=== PATIENT | female | born 1950 | race Caucasian/White ===

== ENCOUNTER 2020-01-03 09:11 | Emergency (ER) | payer MEDICARE, SELFPAY ==
--- NOTE | ~2020-01-03 | XR_ITS ---
EXAMINATION: XR shoulder LT min 2V DATE: 01/03/2020 09:43 INDICATION: Left shoulder pain and limited range of motion post fall TECHNIQUE: AP internally and externally rotated, AP oblique externally rotated and transscapular Y vi ews of the left shoulder were obtained. COMPARISON: None FINDINGS: Transverse fracture at the surgical neck of the proximal left humerus which is essentially nondisplac ed with mild anterior and medial impaction. Normal alignment and mild osteoarthritis at the left trey ohumeral and acromioclavicular joints. Severe lower cervical spondylosis. Soft tissues are unremarkab le. Visualized portions of the left lung are clear. IMPRESSION: Nondisplaced 1 part fracture at the left humeral surgical neck. Reviewed, dictated and finalized at location A.
[2020-01-03 09:21] VITALS: BP 153/75; PULSE 89; RESP 20; TEMP 36.4; O2SAT 98
--- NOTE | 2020-01-03 09:23 | ED.GENADULT ---
HPI - General Adult General Chief complaint: Extremity Injury, Upper Stated complaint: left shoulder injury Time Seen by Provider: 01/03/20 09:25 Source: patient and RN notes reviewed Mode of arrival: ambulatory Limitations: no limitations History of Present Illness HPI narrative: 69 year old female presents to [facility] care with complaints of injury to her left shoulder which occurred when she fell out of bed this morning at around 0630. Patient has pain to left AC joint area and in left upper arm with inability to actively move these areas. Patient has strong left radial and brachial pulses MD complaint: left shoulder pain and upper arm pain Onset (ago): hour(s) (at 0630 today) Location: left and upper extremity Radiation: other (left ac joint into left upper arm) Severity: severe Severity scale (1-10): 10 Quality: aching Pain Consistency: constant Relieving factors: rest Exacerbating factors: movement Treatments prior to arrival: none Related Data Home Medications Medication Instructions Recorded Confirmed blood-glucose meter #1 each 02/07/19 Allergies Allergy/AdvReac Type Severity Reaction Status Date / Time No Known Allergies Allergy Mild Verified 02/12/19 09:54 Review of Systems Review of Systems: Narrative: CONSTITUTIONAL: Denies fever, chills, or sweats. EYES: Denies visual changes, redness, or discharge. ENT: Denies rhinorrhea, congestion, sore throat, or otalgia. CARDIOVASCULAR: Denies chest pain, palpitations, or edema. RESPIRATORY: Denies cough or dyspnea. GASTROINTESTINAL: Denies abdominal pain, nausea, vomiting, or diarrhea. GENITOURINARY: Denies dysuria or hematuria. SKIN: Denies rash or itching. MUSCULOSKELETAL: Denies lumbar back pain, positive history of cervical neck problems, positive left shoulder joint pain radiating to left upper arm, or myalgia related to injury this morning. NEUROLOGIC: Denies headache, numbness, or weakness. PSYCHIATRIC: Denies anxiety or depression. All systems reviewed & are unremarkable except as noted in HPI and below PMFSH Past Medical History Medical History (Updated 01/03/20 @ 10:20 by Dianne Geronimo NP) Cervical radiculopathy Essential (primary) hypertension Hyperlipidemia Neuropathy Type 2 diabetes mellitus with diabetic neuropathy, without long-term current use of insulin Surgical History Surgical History (Updated 01/03/20 @ 09:37 by Dianne Geronimo NP) H/O breast biopsy H/O section H/O: hysterectomy Family History Family History (Updated 01/03/20 @ 12:40 by Dianne Geronimo NP) Mother Patient's mother is Heart disease Diabetes mellitus Father Patient's father is Other Hypertension Social History Social History (Updated 01/03/20 @ 09:59 by Dianne Geronimo NP) Smoking status: Never smoker Second hand tobacco smoke exposure: Yes Alcohol intake: current Substance use: never Living arrangements: with family Gender identity (if verbalized by the patient): Female Comments At time of signature, agree with nursing past medical, surgical, social and family history. There is no relevant family history pertinent to the presenting complaint Exam Narrative: Exam Narrative: GENERAL: Well-appearing, well-nourished, and in no acute distress. HEAD: Normocephalic, atraumatic. EYES: PERRLA and EOMI. ENT: Nares clear, no rhinorrhea or epistaxis. Mucous membranes moist. NECK: Supple.no lymphadenopathy CHEST: Clear to auscultation. No respiratory distress.SAO2 98% on room air. HEART: Regular rate and rhythm. No murmur heard. Normal peripheral pulses. ABDOMEN: Soft, nontender, nondistended, normal active bowel sounds. EXTREMITIES: Limited ROM to left shoulder with pain from injury, unable to abduct shoulder,strong left brachial and radial pulses. Patient has tenderness on palpation at AC joint and in proximal humerus. SKIN: Warm, dry, no rash. NEURO: No focal deficits. Alert and annita
== END 2020-01-03 10:33 | disposition home or self-care (01) ==
PROVIDERS: Emergency Provider Registered Nurse; PCP Internal Medicine
DX: S42.215A Unspecified nondisplaced fracture of surgical neck of left humerus, initial encounter for closed fracture (principal); W06.XXXA Fall from bed, initial encounter; I10 Essential (primary) hypertension; E11.42 Type 2 diabetes mellitus with diabetic polyneuropathy; M54.12 Radiculopathy, cervical region
CPT/HCPCS: 73030; 99214; G0463

== ENCOUNTER 2020-09-10 14:30 | Outpatient (RCR) | payer MEDICARE, SELFPAY ==
[2020-07-09 09:07] VITALS: BMI 28.9
[2020-07-09 09:10] VITALS: BMI 28.9
== END 2020-09-24 15:03 | disposition home or self-care (01) ==
LOC: ANHDMC 14:30
PROVIDERS: PCP Internal Medicine; Referring Provider Internal Medicine Endocrinology, Diabetes & Metabolism; Visit Provider Internal Medicine Endocrinology, Diabetes & Metabolism
DX: E11.40 Type 2 diabetes mellitus with diabetic neuropathy, unspecified (principal); E11.65 Type 2 diabetes mellitus with hyperglycemia; Z71.3 Dietary counseling and surveillance; Z71.89 Other specified counseling
CPT/HCPCS: 97802; G0108; G0109

== ENCOUNTER 2020-10-03 11:39 | Outpatient (CLI) | payer MEDICARE, SELFPAY ==
[2020-10-03 14:03] LABS: Add Urine Microscopic? YES; Appearance Urine Clear (Clear); Bilirubin Urine Negative (Negative); Blood Urine Negative (Negative); Color Urine Yellow (Yellow); Glucose Urine UA 3+ mg/dL (Negative); Ketones Urine Negative (Negative); Leukocyte Esterase Ur Negative LEU/UL (NEGATIVE); Mucus Urine Rare /lpf; Nitrate Urine Negative (Negative); Protein Urine Negative (Negative); RBC Urine 0-2 /hpf (0-2); Specific Grav Ur 1.024 (1.001-1.035); Squamous Epithelial Cell Urine Rare /hpf (Few); Urobilinogen Urine Negative mg/dL (<2.0)
== END 2020-10-03 11:40 | disposition home or self-care (01) ==
PROVIDERS: PCP Internal Medicine; Visit Provider Physician Assistant
DX: R10.9 Unspecified abdominal pain (principal)
CPT/HCPCS: 81001; 87086; 87088

== ENCOUNTER 2020-10-13 14:52 | Outpatient (CLI) | payer MEDICARE, SELFPAY ==
--- NOTE | ~2020-10-13 | CT_ITS ---
EXAMINATION: CT abdomen pelvis wo con DATE: 10/13/2020 15:19 INDICATION: Left flank pain TECHNIQUE: Computed tomography (CT) of the abdomen and pelvis was performed without intravenous contr ast. The dose-length product (DLP) was 405.46 mGy-cm. Automated exposure control and iterative recons truction technique were employed. COMPARISON: 05/28/2011 FINDINGS: The lung bases are clear. The heart size is normal. Punctate calcifications in otherwise no rmal appearing liver and spleen likely represent healed granulomatous disease. The pancreas, gallblad randal, and adrenal glands are normal. There is a 3 mm nonobstructing stone of the left kidney. Nonobstr ucting stones measuring up to 2 mm are present in the right kidney. No stones are present in the uret ers or bladder. There is no hydronephrosis or hydroureter. There is a 6 mm cyst of the left kidney. T here is calcified atherosclerosis of the aorta and many of the other arteries. No pathologically enla rged abdominal or pelvic lymph nodes are identified. There is no free intraperitoneal gas or evidence of bowel obstruction. There is mild lumbar spondylosis. IMPRESSION: 1. No CT correlate for the patient's symptoms. 2. Bilateral nonobstructing nephrolithiasis. Reviewed, dictated and finalized at location A.
== END 2020-10-13 14:53 | disposition home or self-care (01) ==
LOC: ANHIMG 14:57
PROVIDERS: PCP Internal Medicine; Visit Provider Nurse Practitioner Adult Health
DX: R10.9 Unspecified abdominal pain (principal); N20.0 Calculus of kidney
CPT/HCPCS: 74176

== ENCOUNTER 2022-03-22 10:30 | Emergency (ER) | payer MEDICARE, SELFPAY ==
--- NOTE | ~2022-03-22 | XR_ITS ---
EXAMINATION: XR knee RT min 4V DATE: 03/22/2022 11:25 INDICATION: Right knee pain TECHNIQUE: Four views of the right knee were obtained. COMPARISON: None. FINDINGS: Alignment is normal. No fracture or osteochondral lesion. There is tricompartmental osteoar thritis, moderate in the medial and patellofemoral compartments. No joint effusion/synovitis. Soft t issues are unremarkable. IMPRESSION: 1. Tricompartmental osteoarthritis without acute osseous abnormality. Reviewed, dictated and finalized at location B. 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
[2022-03-22 10:36] VITALS: BP 143/73; PULSE 97; RESP 14; TEMP 36.7; O2SAT 99
--- NOTE | 2022-03-22 10:54 | ED.LOWEXIN ---
HPI - Extremity Injury (Lower) General Chief Complaint: Extremity Injury, Lower Stated Complaint: Right Knee Pain Time Seen by Provider: 03/22/22 10:54 Source: patient, RN notes reviewed and old records reviewed Mode of arrival: ambulatory Limitations: no limitations History of Present Illness HPI Narrative: 72-year-old female who presents to [facility] with complaints of right knee pain located on the medial aspect of her right knee for the past month duration. Patient states she has had torn meniscus [place] [address] Augustine in the past and has also had past knee injection to her right knee. 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 Patient has full ROM of her right knee with no swelling noted, denies any tingling or numbness to her right lower leg or foot. MD complaint: other (right knee pain) Onset (ago): month(s) (1) Treatments prior to arrival: NSAIDS Related Data Home Medications Medication Instructions Recorded Confirmed blood-glucose meter (Accu-Chek #1 ea 02/07/19 12/20/21 Cary Plus Meter) insulin glargine 100 subcut 03/22/22 unit-lixisenatide 33 mcg/mL subcutaneous pen (Soliqua /33) Allergies Allergy/AdvReac Type Severity Reaction Status Date / Time No Known Allergies Allergy Mild Verified 03/22/22 11:14 Review of Systems Review of Systems: CONSTITUTIONAL: Denies fever, chills, or sweats. EYES: Denies visual changes, redness, or discharge. ENT: Denies rhinorrhea, congestion, sore throat, or otalgia. CARDIOVASCULAR: Denies chest pain, palpitations, or edema. RESPIRATORY: Denies cough or dyspnea. GASTROINTESTINAL: Denies abdominal pain, nausea, vomiting, or diarrhea. GENITOURINARY: Denies dysuria or hematuria. SKIN: Denies rash or itching. MUSCULOSKELETAL: Denies back pain,positive for right medical knee joint pain, or myalgia. NEUROLOGIC: Denies headache, numbness, or weakness. PSYCHIATRIC: Denies anxiety or depression. All systems reviewed & are unremarkable except as noted in HPI and below PMFSH Past Medical History Medical History Acute pain of left shoulder Annual physical exam Arthritis Body mass index (BMI) 23 or greater (12/22/17) Cervical radiculopathy Chronic pain of right knee Dermoid cyst of forehead Essential (primary) hypertension Gastro-esophageal reflux disease without esophagitis Hyperlipidemia Iron deficiency anemia Left flank pain Myalgia Nephrolithiasis Neuropathy Peripheral edema Type 2 diabetes mellitus with diabetic neuropathy, without long-term current use of insulin Surgical History Surgical History H/O breast biopsy H/O section H/O: hysterectomy History of eye surgery cataract surgery left eye Family History Family History Mother Patient's mother is Heart disease Diabetes mellitus Father Patient's father is Other Asthma Hypertension Social History Social History Smoking status: Never smoker Second hand tobacco smoke exposure: Yes Alcohol intake: current Alcohol use details: rarely Substance use: never Gender identity (if verbalized by the patient): Female Spiritual care concerns: No Comments At time of signature, agree with nursing past medical, surgical, social and family history. There is no relevant family history pertinent to the presenting complaint Exam Narrative: GENERAL: Well-appearing, well-nourished, and in no acute distress. HEAD: Normocephalic, atraumatic. EYES: PERRLA and EOMI. ENT: Nares clear, no rhinorrhea or epistaxis. Mucous membranes moist.TM's normal with good light reflex, throat pink with no lesions or exudates or swelling NECK: Supple.no lymphadenopath
== END 2022-03-22 12:11 | disposition home or self-care (01) ==
PROVIDERS: Emergency Provider Registered Nurse; PCP Internal Medicine
DX: M25.561 Pain in right knee (principal); M19.90 Unspecified osteoarthritis, unspecified site; I10 Essential (primary) hypertension; K21.9 Gastro-esophageal reflux disease without esophagitis; E78.5 Hyperlipidemia, unspecified; D50.9 Iron deficiency anemia, unspecified; E11.40 Type 2 diabetes mellitus with diabetic neuropathy, unspecified
CPT/HCPCS: 73564; 99213; G0463

== ENCOUNTER 2022-09-30 10:48 | Observation (INO) | payer MEDICARE, SELFPAY ==
[2022-09-30] VITALS (14 sets, daily range): BP systolic 107–160; BP diastolic 66–90; PULSE 76–90; RESP 11–26; TEMP 36.3–36.6; O2SAT 95–100; BMI 28.8; BMI 28.9
--- NOTE | ~2022-09-30 | XR_ITS ---
XR chest 2V DATE: 09/30/2022 13:37 INDICATION: Stroke symptoms TECHNIQUE: PA and lateral views COMPARISON: None FINDINGS: Normal heart size. There is mild aortic unfolding. No hilar or mediastinal enlargement. No pulmonary infiltrate or consolidation, pleural effusion or pulmonary vascular congestion or pneumo thorax. Mild degenerative spurring of the thoracic spine. IMPRESSION: No active cardiopulmonary disease Reviewed, dictated and finalized at location L.
--- NOTE | ~2022-09-30 | MR_ITS ---
MRI of the brain Clinical History: TIA Technique: Axial and sagittal T1-weighted images were acquired. These were followed by axial T2-weigh miracle, diffusion weighted, gradient, and FLAIR images. Findings: There is no acute infarct, intracranial hemorrhage, or mass lesion. There are moderate synchro assembler erika white matter changes throughout the periventricular white matter bilaterally. Ventricles and subarachnoid spaces are unremarkable. Orbits are unremarkable. There is near complete opacification of the right maxillary sinus with polypoid masslike lesion extending into the right cher al cavity and into the posterior right nasopharynx. Remaining paranasal sinuses and mastoid air cells are clear. Major intracranial flow voids are intact. Sagittal midline structures are intact. IMPRESSION: No intracranial hemorrhage or acute infarct. Moderate chronic microvascular ischemic changes in the periventricular white matter. Large somewhat masslike lesion opacifying the right maxillary sinus and extending to the right nasal cavity/nasopharynx. This is grossly similar to prior CT from 10/16/2006, with timeframe indicating an i ndolent/benign process. Reviewed, dictated and finalized at location . IMPRESSION: No intracranial hemorrhage or acute infarct. Moderate chronic microvascular ischemic changes in the periventricular white ma tter. Large somewhat masslike lesion opacifying the right maxillary sinus and extendi ng to the right nasal cavity/nasopharynx. This is grossly similar to prior CT f rom 10/16/2006, with timeframe indicating an indolent/benign process.
--- NOTE | ~2022-09-30 | US_ITS ---
Procedure: Duplex Doppler examination of the bilateral carotids. Indication: TIA Technique: Real time, color-flow and pulse wave Doppler examination of the bilateral carotids was performed. Findings: Rodriguez scale ultrasonography of the right neck demonstrated no significant plaque. There was demonstrat ion of normal color-flow and Doppler waveforms within the right common, internal and external carotid arteries. The peak systolic velocities in the right common, internal and external carotid arteries w ere demonstrated to be 110 cm/sec, 86 cm/sec and 100 cm/sec respectively. The right ICA/CCA ratio was 1.1.The proximal right internal carotid artery demonstrates 0% stenosis relative to the normal dista l artery lumen diameter. Rodriguez scale sonography of the left neck demonstrated no significant plaque. There was demonstration of normal color-flow and wave forms within the left common, internal and external carotid arteries. The peak systolic velocities in the left common, internal and external carotid arteries were demonstrate d to be 100cm/sec, 122 cm/sec and 104 cm/sec respectively. The left ICA/CCA ratio was 1.4. The proxim al left internal carotid artery demonstrates 0% stenosis relative to the normal distal artery lumen d iameter. There was antegrade flow demonstrated in the bilateral vertebral arteries. Impression: No hemodynamically significant stenosis of the bilateral internal carotid arteries. Antegrade flow in the bilateral vertebral arteries. Note: The methodology used is an indirect measurement validated against a direct method (such as the NASCET criteria) that compares diameters at the stenosis to the distal ICA. Reviewed, dictated and finalized at location . Impression: No hemodynamically significant stenosis of the bilateral internal carotid arter ies. Antegrade flow in the bilateral vertebral arteries. Note: The methodology used is an indirect measurement validated against a direct meth od (such as the NASCET criteria) that compares diameters at the stenosis to the distal ICA.
--- NOTE | ~2022-09-30 | CT_ITS ---
EXAMINATION: CT brain wo con DATE: 09/30/2022 13:34 INDICATION: Dizziness and expressive aphasia, resolved TECHNIQUE: Computed tomography (CT) of the head was performed without intravenous contrast. The mA wa s adjusted according to patient size. Iterative reconstruction technique was employed. Exam dose: 60 5.33 mGy-cm total exam DLP. COMPARISON: 10/16/2006 CT brain FINDINGS: There is chronic complete opacification of the included right maxillary sinus with cortical thickening of the right maxillary sinus wall, unchanged since 10/16/2006. With the exception of minima l mucoperiosteal thickening of the ethmoid air cells. The included paranasal sinuses are otherwise un remarkable. The mastoid air cells are normally developed and aerated bilaterally. No fracture or bone destruction of the cranial vault is detected. Moderate cerebral and cerebellar volume loss. Prominent bilateral vertebral artery, basilar artery and prominent bilateral carotid siphon internal carotid artery calcifications. There is nonspecific diminished attenuation of the cerebral white donn er, likely due to chronic small vessel ischemic change. No intracranial mass lesion or hemorrhage, midline shift or mass effect or subdural or epidural hemat kaylan is detected. Minimal bilateral basal ganglia calcification. IMPRESSION: Cerebral atherosclerosis and chronic small vessel ischemic changes of cerebral white mat ter Moderate cerebral and cerebellar volume loss No acute intracranial finding Chronic right maxillary soft tissue thickening and increased thickness of the right maxillary sinus b doug wall, unchanged since 10/16/2006 Reviewed, dictated and finalized at [facility]. Reviewed, dictated and finalized at [facility]. IMPRESSION: Cerebral atherosclerosis and chronic small vessel ischemic changes of cerebral white matter Moderate cerebral and cerebellar volume loss No acute intracranial finding Chronic right maxillary soft tissue thickening and increased thickness of the r ight maxillary sinus bony wall, unchanged since 10/16/2006
--- NOTE | 2022-09-30 12:52 | ECG_ITS ---
Measurements Intervals [place] Rate: 80 P: 40 OH: 190 QRS: -17 QRSD: 101 T: 51 QT: 384 QTc: 445 Interpretive Statements SINUS RHYTHM VENTRICULAR PREMATURE COMPLEX DELAYED PRECORDIAL R/S TRANSITION NONSPECIFIC T-WAVE ABNORMALITY- HIGH LATERAL LEADS BORDERLINE ECG NO PREVIOUS ECG AVAILABLE FOR COMPARISON Electronically Signed On 09-30-2022 14:07:08 CDT by Jose Smith D.O.
[2022-09-30 13:19] LABS: Basophils Absolute Auto 0.1 K/mm3 (0.0-0.1); Eosinophils Absolute Auto 0.6 K/mm3 (0-0.3); Hematocrit 36.9 % (37.0-47.0); Hemoglobin 11.7 g/dL (12.0-15.0); Immature Granulocyte Absolute 0.03 K/mm3 (0.00-0.031); Immature Granulocyte Percent A 0.3 % (0-0.5); Lymphocytes Absolute Auto 3.79 K/mm3 (0.9-3.2); Lymphocytes Percent Auto 36.3 % (18.3-44.2); Mean Corpuscular HGB Conc 31.7 g/dl (32-36); Mean Corpuscular Hemoglobin 27.2 pg (26-34); Mean Corpuscular Volume 85.8 fl (80-100); Mean Platelet Volume 9.7 fl (7.4-10.4); Monocytes Absolute Auto 0.8 K/mm3 (0.1-0.6); Neutrophils Absolute Auto 5.1 K/mm3 (1.3-6.7); Neutrophils Percent Auto 48.4 % (45.5-73.1); Platelet Count Result 317 k/mm3 (150-375); Red Cell Distribution Width 13.6 % (11.5-14.5); White Blood Count 10.4 K/mm3 (4.5-10.0)
[2022-09-30 13:27] LABS: Prothrombin Time 13.2 Seconds (11.1-14.7)
[2022-09-30 13:28] LABS: Partial Thromboplastin Time 26.5 SECONDS (22.3-36.8)
[2022-09-30 13:30] LABS: Alanine Aminotransferase 21 U/L (6-35); Albumin Level 4.7 g/dL (3.5-5.1); Alkaline Phosphatase 77 U/L (38-126); Anion Gap 8 mmol/L (8-16); Aspartate Amino Transferase 40 U/L (14-36); Bilirubin,Total 0.3 mg/dL (0.2-1.3); Blood Urea Nitrogen 29 mg/dL (7-17); Calcium 9.8 mg/dL (8.4-10.2); Carbon Dioxide 29 mmol/L (22-30); Chloride 103 mmol/L (98-107); Estimated CRCL calculation 30 ml/min; Estimated Glomerular Filt Rate 40; Glucose 77 mg/dL (65-110); Potassium 3.8 mmol/L (3.4-5.0); Sodium 140 mmol/L (137-145)
[2022-09-30 13:42] LABS: Troponin I < 0.012 ng/mL (0.000-0.034)
[2022-09-30 14:34] LABS: Appearance Urine Clear (Clear); Bacteria Urine 3+ /hpf; Bilirubin Urine Negative (Negative); Blood Urine Negative (Negative); Color Urine Yellow (Yellow); Glucose Urine UA Negative (Negative); Ketones Urine Negative (Negative); Leukocyte Esterase Ur 1+ LEU/UL (Negative); Nitrate Urine Negative (Negative); Non Pathogenic Casts 0-2; Protein Urine Negative (Negative); RBC Urine 0-2 /hpf (0-2); Specific Grav Ur 1.008 (1.001-1.035); Squamous Epithelial Cell Urine None seen /hpf (Few); Urobilinogen Urine 0.2 mg/dL (<2.0); pH Urine 6.5 (5.0-9.0)
--- NOTE | 2022-09-30 14:50 | ED.NEUROSD ---
HPI - Neuro Symptoms/Deficit General Chief Complaint: Neuro Symptoms/Deficit Stated Complaint: dizzy, diff. speaking last night Time Seen by Provider: 09/30/22 12:27 History of Present Illness HPI Narrative: Patient is a 72-year-old female who presents ER with concerns for possible TIA/stroke. She was sent here by her PCP. Yesterday afternoon she developed spinning dizziness that was severe. She also developed expressive aphasia where she could not find words when she was trying to talk but also when she would speak the words that were coming out did not make sense. She had no focal weakness of an arm or leg. No facial droop. No history of CVA. Reports the symptoms lasted 1 hour and resolved spontaneously. She does not take antiplatelet medication. Related Data Home Medications Medication Instructions Recorded Confirmed blood-glucose meter (Accu-Chek #1 ea 02/07/19 09/30/22 Cary Plus Meter) famotidine 40 mg tablet 40 mg PO HS 09/30/22 09/30/22 rosuvastatin 20 mg tablet (Crestor) 20 mg PO AC 09/30/22 09/30/22 Allergies Allergy/AdvReac Type Severity Reaction Status Date / Time No Known Allergies Allergy Mild Verified 09/30/22 10:12 Review of Systems Review of Systems: All systems reviewed & are unremarkable except as noted in HPI and below Constitutional: Constitutional: Denies chills and Denies fever(s) ENT: Denies nasal congestion and Denies sore throat Cardiovascular: Cardiovascular: Denies chest pain, Denies rapid heart rate and Denies radiating jaw, neck or arm pain Respiratory: Respiratory: Denies cough and Denies dyspnea Gastrointestinal: Gastrointestinal: Denies abdominal pain, Denies nausea and Denies vomiting Genitourinary: Genitourinary: Denies nocturia and Denies dysuria Neurologic: Reports dizziness, Denies headache(s), Denies focal weakness and Denies numbness Comments: broken speech PMFSH Past Medical History Medical History (Updated 09/30/22 @ 21:40 by Maciej Macedo MD) Arthritis Chronic kidney disease, stage 3 Degenerative joint disease Essential (primary) hypertension Gastro-esophageal reflux disease without esophagitis Hyperlipidemia Insulin dependent type 2 diabetes mellitus Iron deficiency anemia Irritable bowel syndrome Nephrolithiasis Neuropathy Surgical History Surgical History (Updated 09/30/22 @ 15:34 by Heather Ryan PA-C) History of breast biopsy History of section History of hysterectomy History of left cataract surgery Family History Family History Mother Patient's mother is Heart disease Diabetes mellitus Father Patient's father is Other Asthma Hypertension Social History Social History (Updated 09/30/22 @ 15:34 by Heather Ryan PA-C) Social History: Surrogate medical decision maker: Code status: Smoking status: Never smoker Second hand tobacco smoke exposure: Yes Alcohol intake: never Alcohol use details: rarely Substance use: never Substance use type: does not use Lack of Transportation: No Lack of Food: Never True Current Housing: I Have Housing Concerned About Future Housing: No Difficulty Paying Gas/Electric Bills: No Difficulty Paying for Meds: No Currently Unemployed: No Education: Don't Know Difficulty w/ Childcare or Family Care: No Living arrangements: with family Spiritual care concerns: Yes Exam Narrative: GENERAL: Well-appearing, well-nourished, and in no acute distress. HEAD: Normocephalic, atraumatic. EYES: PERRL and EOMI. ENT: Mucous membranes moist. CHEST: Clear to auscultation. No respiratory distress. HEART: Regular rate and rhythm. Normal peripheral pulses. ABDOMEN: Soft, nontender, nondistended. EXTREMITIES: Normal range of motion. No edema. SKIN: Warm, dry, no rash. NEURO: No focal deficits. No expressive aphasia or dysarthria. No fa
[2022-09-30 14:53] LABS: Add Urine Microscopic? YES
--- NOTE | 2022-09-30 15:20 | PM.IMHP ---
H&P: HPI History of Present Illness Date/Time: 09/30/22 16:00 Chief Complaint: Dizzy and difficulty speaking yesterday. Narrative: This is a 52-year-old female with insulin-dependent type 2 diabetes mellitus, hypertension, dyslipidemia, chronic kidney disease stage 3, and gastroesophageal reflux disease who presented to the emergency department via private vehicle from home for evaluation of dizziness and difficulties speaking yesterday. The patient provides the following history. At around 16:00 yesterday afternoon she was at work when she developed sudden vertigo with troubles speaking. More specifically the words that came out were nonsensical even though she knew what she wanted to say. The symptoms lasted approximately 1 hour before resolving spontaneously. She reports no new neurologic symptoms since that time, specifically she denies current vertigo, focal weakness, paresthesias, visual changes, facial droop, difficulty swallowing, and current difficulties speaking. She had a routine appointment with her doctor today and she was directed to the ED for further evaluation after discussing yesterday's events. Vital signs were stable on arrival. Labs did not show any acute findings. EKG showed a sinus rhythm. Brain CT showed no acute intracranial findings but did note cerebral atherosclerosis and chronic small-vessel ischemic changes of cerebral white matter as well as moderate cerebral and cerebellar volume loss. She is being admitted in this setting for TIA/CVA workup. At the time my evaluation she does mention dysuria and increased urinary frequency over the past several days and UA is concerning for UTI. She denies fever, chills, sweats, nausea, vomiting, abdominal pain, flank pain, and hematuria. Review of Systems Review of Systems: Twelve systems were reviewed and are negative except for as per HPI. [facility] Past Medical History Medical History Arthritis Chronic kidney disease, stage 3 Degenerative joint disease Essential (primary) hypertension Gastro-esophageal reflux disease without esophagitis Hyperlipidemia Insulin dependent type 2 diabetes mellitus Iron deficiency anemia Irritable bowel syndrome Nephrolithiasis Neuropathy Surgical History Surgical History History of breast biopsy History of section History of hysterectomy History of left cataract surgery Family History Family History Mother Patient's mother is Heart disease Diabetes mellitus Father Patient's father is Other Asthma Hypertension Social History Social History (Updated 09/30/22 @ 22:24 by Heather Ryan PA-C) Social History: Surrogate medical decision maker: Goyo Campbell, spouse. Code status: Full code. Smoking status: Never smoker Second hand tobacco smoke exposure: Yes Alcohol intake: never Alcohol use details: rarely Substance use: never Substance use type: does not use Lack of Transportation: No Lack of Food: Never True Current Housing: I Have Housing Concerned About Future Housing: No Difficulty Paying Gas/Electric Bills: No Difficulty Paying for Meds: No Currently Unemployed: No Education: Don't Know Difficulty w/ Childcare or Family Care: No Living arrangements: with family Spiritual care concerns: Yes Meds Home Medications and Allergies Home Medications Medication Instructions Recorded Confirmed Type blood-glucose meter (Accu-Chek #1 ea 02/07/19 09/30/22 History Cary Plus Meter) blood-glucose meter #1 ea 06/20/20 09/30/22 Rx pen needle, diabetic 32 gauge x #100 ea 09/07/21 09/30/22 Rx 5/32 (BD Ultra-Fine Kait Pen Needle) blood sugar diagnostic (Accu-Chek #100 strips 01/07/22 09/30/22 Rx Cary Plus test strips) lancets (Accu-Chek Fastcli
--- NOTE | 2022-09-30 16:37 | ADMGEN ---
This patient, Carlene Campbell, was admitted to 2 Medical Room 250-01. Patient/family oriented to hospital policies and general routines including ID bracelet, bed and alarms, visiting hours, pain management, procedures, bathroom and other care routines, personal items, smoking policy, room service/diet, and visiting hours. Information on how to activate the Rapid Response Team has been discussed. Patient/Family are encouraged to report perceived risks to care and to ask questions if they do not understand what they are told or what they should do.
[2022-10-01] VITALS: PULSE 77
[2022-10-01 07:46] LABS: Anion Gap 11 mmol/L (8-16); Blood Urea Nitrogen 26 mg/dL (7-17); Calcium 9.6 mg/dL (8.4-10.2); Carbon Dioxide 28 mmol/L (22-30); Chloride 101 mmol/L (98-107); Estimated CRCL calculation 36 ml/min; Estimated Glomerular Filt Rate 49; Glucose 133 mg/dL (65-110); Magnesium 1.6 mg/dL (1.6-2.3); Potassium 3.9 mmol/L (3.4-5.0); Sodium 140 mmol/L (137-145)
[2022-10-01] MEDS: PANTOPRAZOLE 40 MG TABLET PO (09:09)
[2022-10-01] MEDS: hydroCHLOROthiazide 25 MG TABLET PO (09:10)
[2022-10-01] MEDS: lisinopriL 20 MG TABLET PO (09:10)
[2022-10-01] MEDS: ASPIRIN 81 MG ENTERIC TABLET PO (09:10)
[2022-10-01] MEDS: GLIMEPIRIDE 2 MG TABLET PO (09:10)
[2022-10-01 09:11] LABS: Glucose Point of Care 229 mg/dl (65-105)
[2022-10-01] MEDS: MAGNESIUM SULF 2 GM/WATER 50ML 2 GM/50 ML BAG IVPB (09:17)
[2022-10-01] MEDS: ROSUVASTATIN 10 MG TABLET 20 MG PO (09:18)
[2022-10-01 09:22] VITALS: BP 104/64; PULSE 101
[2022-10-01 09:38] LABS: Hematocrit 36.8 % (37.0-47.0); Hemoglobin 11.7 g/dL (12.0-15.0); Mean Corpuscular HGB Conc 31.8 g/dl (32-36); Mean Corpuscular Hemoglobin 27.3 pg (26-34); Mean Corpuscular Volume 85.8 fl (80-100); Mean Platelet Volume 10.2 fl (7.4-10.4); Platelet Count Result 326 k/mm3 (150-375); Red Blood Count 4.29 M/mm3 (4.2-5.4); Red Cell Distribution Width 13.6 % (11.5-14.5); White Blood Count 10.1 K/mm3 (4.5-10.0)
[2022-10-01 10:38] VITALS: O2SAT 96
[2022-10-01 10:40] LABS: Hemoglobin A1C 7.8 % (<5.7)
--- NOTE | 2022-10-01 11:54 | WPDNEURCNPN ---
Assessment and Plan Assessment and plan (1) Transient ischemic attack: Code(s): G45.9 - Transient cerebral ischemic attack, unspecified Status: Acute Plan 1. TIA 2. Hypertension 3. Type 2 diabetes mellitus 4. Hyperlipidemia plan continue aspirin 81 mg daily and Plavix 75 mg daily only for 4 weeks Consult date: 10/01/22 HPI: Carlene Campbell is a 72 year old female has been admitted to the hospital through the emergency room for the possibility of TIA versus stroke. He was evaluated by the primary care physician in the office day before when she developed spinning sensation along with the difficulties in his speech to the point that she was having difficulties in finding the words and when she tried to repeat the words there were coming out differently she had no associated weakness of the upper or lower extremities, no facial droop or asymmetry patient has been taking famotidine 40 mg at night in addition to rosuvastatin 20 mg daily. She is not allergic to any medication her initial examination otherwise in the emergency room was nonfocal. 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, she has never a smoker and drinks alcohol rarely, her initial exam in the emergency room revealed her to have fairly normal vital signs CBC was 11.7 hemoglobin and normal BMP, routine lab otherwise was normal , CT scan documented the moderate cerebral and cerebellar volume loss but no other focal insult, and EKG was without atrial fibrillation, considering the possibility of TIA, brain MRI has been negative for the acute stroke except the moderate chronic microvascular ischemic changes in the periventricular white matter and a large somewhat masslike lesion opacity finding the right maxillary sinus and extending to right nasal cavity and nasopharynx this has been compared with the previous CT scan done on October 16, 2006 and indicates an indolent benign process, carotid Doppler study is negative with antegrade flow in the bilateral vertebral arteries as well, and she has negative x-ray of the chest Review of Systems Review of Systems: All systems reviewed & are unremarkable except as noted in HPI and below [facility] Past Medical History Medical History Arthritis Chronic kidney disease, stage 3 Degenerative joint disease Essential (primary) hypertension Gastro-esophageal reflux disease without esophagitis Hyperlipidemia Insulin dependent type 2 diabetes mellitus Iron deficiency anemia Irritable bowel syndrome Nephrolithiasis Neuropathy Surgical History Surgical History History of breast biopsy History of section History of hysterectomy History of left cataract surgery Family History Family History Mother Patient's mother is Heart disease Diabetes mellitus Father Patient's father is Other Asthma Hypertension Social History Social History (Updated 09/30/22 @ 22:24 by Heather Ryan PA-C) Social History: Surrogate medical decision maker: Goyo Campbell, spouse. Code status: Full code. Smoking status: Never smoker Second hand tobacco smoke exposure: Yes Alcohol intake: never Alcohol use details: rarely Substance use: never Substance use type: does not use Lack of Transportation: No Lack of Food: Never True Current Housing: I Have Housing Concerned About Future Housing: No Difficulty Paying Gas/Electric Bills: No Difficulty Paying for Meds: No Currently Unemployed: No Education: Don't Know Difficulty w/ Childcare or Family Care: No Living arrangements: with family Spiritual care concerns: Yes Meds Home Medications and Allergies Home Medications Medication Instructions Recorded Confirm
--- NOTE | 2022-10-01 12:13 | PM.DS ---
DS: Admitting Diagnosis Discharge Date 10/01/22 Admitting Diagnosis Rule out CVA DS: Discharge Diagnosis Discharge Diagnosis (1) Transient ischemic attack: Code(s): G45.9 - Transient cerebral ischemic attack, unspecified Status: Acute (2) Urinary tract infection: Code(s): N39.0 - Urinary tract infection, site not specified Status: Acute (3) Essential (primary) hypertension: Code(s): I10 - Essential (primary) hypertension Status: Acute (4) Insulin dependent type 2 diabetes mellitus: Code(s): E11.9 - Type 2 diabetes mellitus without complications; Z79.4 - residential (current) use of insulin Status: Acute (5) Hyperlipidemia: Code(s): E78.5 - Hyperlipidemia, unspecified Status: Acute (6) Chronic kidney disease, stage 3: Code(s): N18.30 - Chronic kidney disease, stage 3 unspecified Status: Acute DS: Summary Hospital Course Hospital Course: This is a 72-year-old female with a past medical history of diabetes, hypertension, dyslipidemia, CKD and GERD the presented to the ED for evaluation of dizziness and difficulty speaking. Her symptoms lasted approximately 1 hour. Patient's labs and vital signs were stable on arrival to the ED. Her EKG showed sinus rhythm. Brain CT no acute intracranial abnormality. patient was admitted for further workup of TIA/CVA. MRI revealed no acute intracranial abnormality. Echocardiogram was performed and discussed with patient that she will be notified if echocardiogram results are abnormal. Carotid Dopplers did not reveal any hemodynamically significant stenosis of the bilateral internal carotid arteries. Neurology was consulted and they recommended patient continue aspirin and Plavix daily for 4 weeks for suspected TIA. Time Spent with Patient Time attestation: Total time spent providing and/or coordinating discharge services: Exam Narrative: GENERAL: Comfortable, no acute distress HENMT: moist mucous membranes EYES: EOM intact b/l NECK: no lymphadenopathy RESPIRATORY: clear to auscultation CARDIO: RRR GI: soft, nontender, bowel sounds present SKIN: no rashes EXTREMITIES: no edema, redness or tenderness NEURO: Upper and lower extremity strength 5/5, no facial droop, no slurred speech, no pronator drift DS: Data Data Completed and Pending Labs on day of discharge: Labs from last 24 hours 10/01/22 10/01/22 10/01/22 09:05 06:26 05:15 WBC 10.1 H RBC 4.29 Hgb 11.7 L Hct 36.8 L MCV 85.8 MCH 27.3 MCHC 31.8 L RDW 13.6 Plt Count 326 MPV 10.2 Immature Gran % (Auto) Neut % (Auto) Lymph % (Auto) [place] % (Auto) Eos % (Auto) Baso % (Auto) Lymph # (Auto) [place] # (Auto) Eos # (Auto) Baso # (Auto) Abs Immat Gran (auto) Absolute Neuts (auto) Absolute Nucleated RBC Nucleated RBC % PT INR APTT Sodium 140 Potassium 3.9 Chloride 101 Carbon Dioxide 28 Anion Gap 11 BUN 26 H Creatinine 1.10 H Estim Creat Clear Calc 36 Estimated GFR 49 L Glucose 133 H POC Capillary Glucose 229 H Hemoglobin A1c 7.8 H Calcium 9.6 Magnesium 1.6 Total Bilirubin AST ALT Alkaline Phosphatase Troponin I Total Protein Albumin TSH (Reflex) 2.580 Urine Color Urine Appearance Urine pH Ur Specific [place] Urine Protein Urine Glucose (UA) Urine Ketones Ur Blood (Man) Urine Nitrate Urine Bilirubin Urine Urobilinogen Leukocyte Esterase Rfl Urine RBC Urine WBC Ur Squamous Epith Cells Urine Bacteria Urine Casts 09/30/22 09/30/22 09/30/22 14:13 13:11 13:11 WBC 10.4 H RBC 4.30 Hgb 11.7 L Hct 36.9 L MCV 85.8 MCH 27.2 MCHC 31.7 L RDW 13.6 Plt Count 317 MPV 9.7 Immature Gran % (Auto) 0.3 Neut % (Auto) 48.4 Lymph % (Auto) 36.3 [place] % (Auto) 8.0 Eos % (Auto) 6.0 H Baso
--- NOTE | 2022-10-01 22:29 | ECHO_ITS ---
Patient Info Name: Carlene Campbell Age: 72 years : 1950 Gender: Female Ht: 60 in Wt: 148 lbs BSA: 1.71 m2 HR: 100 bpm BP: 160 / 76 mmHg Technical Quality: Fair Exam Date: 10/01/2022 9:50 AM Exam Location: [facility] Room: 250 Patient Status: Outpatient Admit Date: 09/30/2022 Staff Ordering Physician: Heather Ryan PA-C [facility] Supervisor: Ivy Vences RDCS Attending Provider: Pio Bennett MD Referring Physician: Shelby HOLT; Exam Type: CA echo doppler color flow Study Info Indications - TIA HTN Complete two-dimensional, color flow and Doppler transthoracic echocardiogram is performed. Summary 1. Complete two-dimensional, color flow and Doppler transthoracic echocardiogram is performed. 2. Left ventricular chamber dimension is normal. 3. Left ventricular systolic function is normal, estimated at 60-65%. 4. The left ventricular diastolic function is grade I diastolic dysfunction. 5. E/e' 10 is mildly elevated. 6. The mitral valve has moderately calcified annulus. 7. There is trace mitral valve regurgitation. 8. No pulmonary hypertension, estimated pulmonary arterial systolic pressure is 18 mmHg. Left Ventricle E/e' 10 is mildly elevated. Left ventricular chamber dimension is normal. Left ventricular systolic function is normal, estimated at 60-65%. The left ventricular diastolic function is grade I diastolic dysfunction. Right Ventricle Right ventricular chamber dimension is normal. Right ventricular systolic function is normal. Left Atria Left atrial chamber dimension is normal. Right Atria Right atrial chamber dimension is normal. Aortic Valve The aortic valve is trileaflet. There is no aortic valve stenosis. There is no aortic valve regurgitation. Pulmonic Valve There is no pulmonic regurgitation. Mitral Valve The mitral valve has moderately calcified annulus. There is no mitral valve stenosis. There is trace mitral valve regurgitation. Tricuspid Valve There is no tricuspid valve regurgitation. No pulmonary hypertension, estimated pulmonary arterial systolic pressure is 18 mmHg. Pericardium/Pleural There is no pericardial effusion. Inferior Vena Cava Normal inferior vena cava with >50% collapse upon inspiration consistent with normal right atrial pressure, 5 mmHg. Aorta The aortic root size at the sinus of Valsalva is normal. Left Ventricular Outflow Tract Name Value Normal LVOT 2D LVOT Diameter 2.0 cm LVOT Doppler LVOT Peak Gradient 6 mmHg LVOT Mean Gradient 3 mmHg LVOT VTI 22 cm LVOT VTI/AV VTI Ratio 0.9 LVOT Stroke Volume 70 ml LVOT CO 16.6 l/min LVOT CI 9.7 l/min/m2 Pulmonic Valve Name Value Normal RVOT Doppler RVOT Peak Gradient 2 mmHg
== END 2022-10-01 12:51 | disposition home or self-care (01) ==
LOC: ANHED 12:57 → ANH2MED 16:19
PROVIDERS: Physician Assistant; Admitting Provider Hospitalist; Emergency Provider Emergency Medicine; PCP Internal Medicine; Visit Provider Internal Medicine Critical Care Medicine
DX: G45.9 Transient cerebral ischemic attack, unspecified (principal); N39.0 Urinary tract infection, site not specified; B96.1 Klebsiella pneumoniae [K. pneumoniae] as the cause of diseases classified elsewhere; I67.2 Cerebral atherosclerosis; I13.10 Hypertensive heart and chronic kidney disease without heart failure, with stage 1 through stage 4 chronic kidney disease, or unspecified chronic kidney disease; E11.22 Type 2 diabetes mellitus with diabetic chronic kidney disease; N18.30 Chronic kidney disease, stage 3 unspecified; K21.9 Gastro-esophageal reflux disease without esophagitis; I49.3 Ventricular premature depolarization; D50.9 Iron deficiency anemia, unspecified; R90.82 White matter disease, unspecified; E78.5 Hyperlipidemia, unspecified; R94.31 Abnormal electrocardiogram [ECG] [EKG]; M19.90 Unspecified osteoarthritis, unspecified site; E11.40 Type 2 diabetes mellitus with diabetic neuropathy, unspecified; K58.9 Irritable bowel syndrome, unspecified; Z79.4 Long term (current) use of insulin; Z79.82 Long term (current) use of aspirin; Z79.02 Long term (current) use of antithrombotics/antiplatelets; Z79.891 Long term (current) use of opiate analgesic; Z79.899 Other long term (current) drug therapy; Z83.3 Family history of diabetes mellitus; Z82.49 Family history of ischemic heart disease and other diseases of the circulatory system
CPT/HCPCS: 36415; 70450; 70551; 71046; 80048; 80053; 81001; 82948; 83036; 83735; 84443; 84484; 85025; 85027; 85610; 85730; 87077; 87086; 87186; 93005; 93306; 93880; 96365; 99285; A9270; G0378; J3475

== ENCOUNTER 2023-03-12 13:18 | Emergency (ER) | payer MEDICARE, SELFPAY ==
[2023-03-12 13:30] VITALS: PULSE 97; RESP 16; TEMP 36.8; O2SAT 99
--- NOTE | 2023-03-12 13:47 | ED.GENADULT ---
HPI - General Adult General Chief complaint: Wound/Laceration Stated complaint: Fall Injury/Face/Teeth/Upper Lip Source: patient, RN notes reviewed and old records reviewed Mode of arrival: ambulatory Limitations: no limitations History of Present Illness HPI narrative: 73-year-old female presents to [facility] with complaint of fall earlier today. Patient states slipped on step coming out of [place] were in fell on face. Patient has small abrasion to upper outer lip and 0.5 cm laceration to inner upper lip patient had nose bleed prior to arrival, bleeding stopped at this time. Patient denies any other injuries. Patient denies neck or back pain, patient denies hitting head, patient denies a loss of consciousness MD complaint: fall Related Data Home Medications Medication Instructions Recorded Confirmed blood-glucose meter (Accu-Chek #1 ea 02/07/19 02/16/23 [place] Plus Meter) insulin glargine 100 40 unit subcut DAILY 01/11/23 02/16/23 unit-lixisenatide 33 mcg/mL subcutaneous pen (Soliqua 100/33) Allergies Allergy/AdvReac Type Severity Reaction Status Date / Time No Known Allergies Allergy Mild Verified 02/15/23 08:36 Review of Systems Constitutional: Constitutional: Reports no additional constitutional complaints, Denies body ache(s), Denies chills, Denies fatigue, Denies fever(s) and Denies headache(s) Eyes: Eyes: Reports no additional eye complaints and Denies blurry vision ENT: Reports system reviewed and no additional complaints, except as documented, Denies vertigo, Denies dizziness, Denies ear discharge, Denies otalgia, Denies facial pain, Denies headache(s), Reports lip swelling, Reports mouth pain, Denies nasal congestion, Denies nasal discharge, Reports nasal trauma, Denies sinus pain, Denies sinus pressure and Denies sore throat Cardiovascular: Cardiovascular: Reports no additional cardiovascular complaints, Denies chest pain, Denies chest pain at rest, Denies rapid heart rate and Denies dyspnea Respiratory: Respiratory: Reports no additional respiratory complaints, Denies chest congestion, Denies cough, Denies pain on inspiration, Denies pain with cough and Denies dyspnea Gastrointestinal: Gastrointestinal: Denies abdominal pain, Denies diarrhea, Denies nausea and Denies vomiting Integumentary/Breasts: Skin/Breast: Denies rash Neurologic: Reports system reviewed and no additional complaints, except as documented, Denies vertigo, Denies dizziness and Denies headache(s) Endocrine: Endocrine: Denies fatigue PMFSH Past Medical History Medical History Arthritis Chronic kidney disease, stage 3 Degenerative joint disease Essential (primary) hypertension Gastro-esophageal reflux disease without esophagitis Hyperlipidemia Insulin dependent type 2 diabetes mellitus Iron deficiency anemia Irritable bowel syndrome Nephrolithiasis Neuropathy Surgical History Surgical History History of breast biopsy History of section History of hysterectomy History of left cataract surgery Family History Family History Mother Patient's mother is Heart disease Diabetes mellitus Father Patient's father is Other Asthma Hypertension Social History Social History Social History: Surrogate medical decision maker: Goyo Adrian, spouse. Code status: Full code. Smoking status: Never smoker Second hand tobacco smoke exposure: Yes Alcohol intake: never Alcohol use details: rarely Substance use: never Substance use type: does not use Lack of Transportation: No Lack of Food: Never True Current Housing: I Have Housing Concerned About Future Housing: No Difficulty Paying Gas/Electric Bills: No Difficulty Paying for
[2023-03-12 13:51] VITALS: BP 141/75
[2023-03-12] MEDS: TETANUS,DIPHTHERIA,AC PERTUSSIS ADULT (0.5 ML) BOOSTRIX IM (14:07)
== END 2023-03-12 14:14 | disposition home or self-care (01) ==
PROVIDERS: Emergency Provider Registered Nurse; PCP Internal Medicine
DX: S01.511A Laceration without foreign body of lip, initial encounter (principal); W10.9XXA Fall (on) (from) unspecified stairs and steps, initial encounter; Z23 Encounter for immunization; M19.90 Unspecified osteoarthritis, unspecified site; I12.9 Hypertensive chronic kidney disease with stage 1 through stage 4 chronic kidney disease, or unspecified chronic kidney disease; E11.22 Type 2 diabetes mellitus with diabetic chronic kidney disease; N18.30 Chronic kidney disease, stage 3 unspecified; Z79.4 Long term (current) use of insulin; K21.9 Gastro-esophageal reflux disease without esophagitis; E78.5 Hyperlipidemia, unspecified; D50.9 Iron deficiency anemia, unspecified; E11.40 Type 2 diabetes mellitus with diabetic neuropathy, unspecified
CPT/HCPCS: 90471; 90715; 99213; G0463

== ENCOUNTER 2023-12-19 12:48 | Outpatient (CLI) | payer MEDICARE, SELFPAY ==
--- NOTE | ~2023-12-19 | XR_ITS ---
Right Knee Technique: AP, lateral, and sunrise views were obtained. Clinical History: Pain Findings: No fracture or dislocation is seen. Probable mild medial compartment narrowing with medial joint line and patella osteophyte formation. There is additional spurring at the intercondylar notch. . Soft tissues are unremarkable. No joint effusion is seen. Impression: Moderate degenerative change, especially the medial compartment and patellofemoral compartment, as ab ove. Reviewed, dictated and finalized at location [facility]. Impression: Moderate degenerative change, especially the medial compartment and patellofemo ral compartment, as above.
--- NOTE | ~2023-12-19 | XR_ITS ---
Left Knee Technique: AP, lateral, and sunrise views were obtained. Clinical History: Pain Findings: No fracture or dislocation is seen. Osseous alignment is anatomic. There is mild degenerati ve spurring at the medial joint line and patella.. Soft tissues are unremarkable. No joint effusion i s seen. Impression: Mild degenerative change, as above. Reviewed, dictated and finalized at location [facility]. Impression: Mild degenerative change, as above.
== END 2023-12-19 12:49 | disposition home or self-care (01) ==
LOC: ANHBWCIMG 12:50
PROVIDERS: PCP Internal Medicine; Visit Provider Orthopaedic Surgery
DX: M17.0 Bilateral primary osteoarthritis of knee (principal)
CPT/HCPCS: 73564

== ENCOUNTER 2024-07-18 13:20 | Outpatient (CLI) | payer MEDICARE, SELFPAY ==
--- OUTSIDE RECORDS SUMMARY | 2024-07-18 13:31 | XMS_ITS | Clinical Summary ---
Author Organization [facility] Address [address] [place] [address] Phone Care Team Providers Care Card Lacer Name Role Phone Sweta Denny MD Unavailable [phone] Ender Nunez DO Primary Care Provider [phone] Allergies No known active allergies Medications lisinopril-hydro chlorothiazide (PRINZIDE, ZESTORETIC) 10-12.5 MG Tablet Take 2 Tabs by mouth every morning. 3 5 Active glimepiride (AMARYL) 4 MG Tablet Take 1 Tab by mouth 2 times daily. 6 5 Active metFORMIN (GLUCOPHAGE) 500 MG Tablet Take 2 Tabs by mouth every morning. 1 tab at night 6 5 Active rosuvastatin (CRESTOR) 10 MG Tablet 2 times daily. Activ e SITagliptin (JANUVIA) 100 MG Tablet Take 1 tablet every day by oral route in the morning for 30 days. Active gabapentin (NEURONTIN) 100 MG CapsuleIndicatio ns:Neuropathic Pain 2 times daily. Indications: Neuropathic Pain Active baclofen (LIORESAL) 20 MG Tablet as needed. Active acyclovir (ZOVIRAX) 800 MG Tablet as needed. Active traMADol (ULTRAM) 50 MG Tablet every 8 hours as needed. Active omeprazole (PriLOSEC) 20 MG CAPSULE DELAYED RELEASEIndicatio ns:Gastroesophag eal reflux disease, unspecified whether esophagitis present Take 1 Cap by mouth daily. 180 Cap 1 1 Active famotidine (PEPCID) 40 MG TabletIndication s:Gastroesophage al reflux disease, unspecified whether esophagitis present Take 1 Tab by mouth 2 times daily. 180 Tab 1 1 Active Additional Information Patient taking differently:40 mg OralEVERY EVENING, Reported on 04/07/2020 Active Problems Problem Noted Date Diagnosed Date Breast calcifications on mammogram 02/10/2015 Immunizations Immunization Administration Dates Next Due Covid-19, Mrna, Lnp-s, PF, 1 00 mcg/0.5 mL Dose (Moderna) 05/27/2020,04/16/2020 Family History Medical History Relation Name Comments Kidney Disease Father Asthma Mother Diabetes Mother Hypertension Mother Breast Cancer Other Niece Relation Name Status Comments Father Mother Other Social History Tobacco Use Types Packs/Day Years Used Date Smoking Tobacco: Never Smokeless Tobacco: Never Tobacco Cessation:Counseling Given: No Alcohol Use Standard Drinks/Week Comments Yes 0 (1 standard drink = 0.6 oz pur e alcohol) Rare Sexually Active Control Partners Comments Not Currently Comments No Sex and Gender Information Value Date Recorded Sex Assigned at Not on file Legal Sex Female 1:21 PM RAIL 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 Gender Identity Not on file Sexual Orientation Not on file Last Filed Vital Signs Vital Sign Reading Time Taken Comments Blood Pressure 144/87 04/25/2020 10:44 AM RAIL GRINDER Pulse 86 04/25/2020 10:44 AM RAIL GRINDER Temperature 36.2 C (97.2 F) 04/25/2020 10:44 AM RAIL GRINDER Respiratory Rate 16 04/25/2020 10:44 AM RAIL GRINDER Oxygen Saturation 98% 04/25/2020 10:44 AM RAIL GRINDER Inhaled Oxygen Concentration - - Weight 69.9 kg (154 lb) 04/07/2020 11:00 AM RAIL GRINDER Height 152.4 cm (5') 04/07/2020 11:00 AM RAIL GRINDER Body Mass Index 30.08 04/07/2020 11:00 AM RAIL GRINDER Plan of Treatment Health Maintenance Due Date Last Done Comments DEXA Bone Density 1950 Hepatitis C Virus (HCV) Screening 1950 TdaP Immunization 1950 Cologuard 2001 Immunochemical Fecal Occult Blood 2001 Pneumococcal Immunization (50+ years) (1 of 1 - PCV) 2001 Zoster Immunization (1 of 2) 2001 Influenza Immunization (#1) 2023 SARS-COV-2 Immunization ( season) 2023 03/22/2021, 05/27/2020, 04/16/2020 Mammogram 12/18/2023 12/17/2022, 05/2 05/2015, 01/28/2015, Additional history exists Respiratory Syncytial Virus (RSV) Immunization (Adult) (1 - 1-dose 75+ series) 2026 Colonoscopy 04/25/2027 04/25/2020 Colorectal Cancer Screening 04/25/2027 04/25/2020 Hepatitis B Immunization Aged Out No longer eligible based on patient's age to complete this topic Meningococcal Immunization (ACWY) Aged Out No longer eligible based on patient's age to complete this topic Rotavirus Immunization Aged Out No lo nger eligible based on patient's age to complete this topic Procedures Procedure Name Priority Date/Time Associated Diagnosis Comments PABLO SCREENING BILATERAL DIGITAL W CAD W JEREMI Routine 12/17/2022 7:30 AM CDT Visit for screening mammogram from Last 3 Months or Most Recently Relevant to Health Maintenance Results * PABLO SCREENING BILATERAL DIGITAL W CAD W JEREMI (12/17/2022 7:30 AM CDT) Anatomical Region Laterality Modality breast Bilateral Mammography 12/17/2022 7:25 AM CDT Narrative 12/17/2022 11:19 AM CDT - PABLO SCREENING BILATERAL DIGITAL W CAD W JEREMI BILATERAL DIGITAL SCREENING MAMMOGRAM 3D/2D WITH CAD WITH MEDIOLATERAL OBLIQUE CRANIOCAUDAL: 12/17/2022 The study was acquired using digital technology and interpreted from soft copy. Current study was also evaluated with ICAD version 7.2. 2D digital mammographic views, as well as 3D digital tomosynthesis were performed in the CC and MLO projections. CLINICAL: Routine screening. Patient has no complaints. Patient reports 20 pound weight loss since last mammogram in 2015. No personal history of cancer. Niece with history of breast cancer. COMPARISONS: Comparison is made to exams dated: 02/09/2016, 08/04/2015, 01/28/2015 [facility], and 12/24/2014 [facility]. BREAST TISSUE:The tissue of both breasts is heterogeneously dense. This may lower the sensitivity of mammography. FINDINGS: There are benign calcifications in the left breast. No significant masses, calcifications, or other findings are seen in either breast. There has been no significant interval change. IMPRESSION: BI-RAD 2 BENIGN There is no mammographic evidence of malignancy. A 1 year screening mammogram is recommended. A letter will be sent to the patient with these results. The patient will be entered into a reminder system with a target due date of 1 year for her next screening exam. Electronically signed by: Deidre joel/trina:12/17/2022 11:06:44 Utilization Review Coordinator(s): RT Brenden(R)(M), [facility] letter sent: Normal Exam Reading location: [facility] BI-RADS: 2 Benign Procedure Note Deidre Snell MD - 12/17/2022 - PABLO SCREENING BILATERAL DIGITAL W CAD W JEREMI BILATERAL DIGITAL SCREENING MAMMOGRAM 3D/2D WITH CAD WITH MEDIOLATERAL OBLIQUE CRANIOCAUDAL: 12/17/2022 The study was acquired using digital technology and interpreted from soft copy. Current study was also evaluated with ICAD version 7.2. 2D digital mammographic views, as well as 3D digital tomosynthesis were performed in the CC and MLO projections. CLINICAL: Routine screening. Patient has no complaints. Patient reports 20 pound weight loss since last mammogram in 2016. No personal history of cancer. Niece with history of breast cancer. COMPARISONS: Comparison is made to exams dated: 02/09/2016, 08/04/2015, 01/28/2015 [facility], and 12/24/2014 [facility]. BREAST TISSUE:The tissue of both breasts is heterogeneously dense. This may lower the sensitivity of mammography. FINDINGS: There are benign calcifications in the left breast. No significant masses, calcifications, or other findings are seen in either breast. There has been no significant interval change. IMPRESSION: BI-RAD 2 BENIGN There is no mammographic evidence of malignancy. A 1 year screening mammogram is recommended. A letter will be sent to the patient with these results. The patient will be entered into a reminder system with a target due date of 1 year for her next screening exam. Electronically signed by: Deidre joel/gilbertorad:12/17/2022 11:06:44 Utilization Review Coordinator(s): RT Brenden(R)(M), [facility] letter sent: Normal Exam Reading location: [facility] BI-RADS: 2 Benign us Ender Nunez DO IMG MAMMO ORDERABLES Final Result from Last 3 Months or Most Recently Relevant to Health Maintenance Insurance [facility] Care Teams Card Lacer Relationship Specialty Start Date End Date Ender Nunez DO [address] [place] [address] PCP - General Internal Medicine 01/04/18 Sweta Denny MD Consulting Physician General Surgery 02/10/15
--- OUTSIDE RECORDS SUMMARY | 2024-07-18 13:31 | XMS_ITS | Clinical Summary ---
Author Organization [facility] Address [address] [place] [address] Care Team Providers Care Commodity Broker Name Role Phone Ender Nunez DO Primary Care Provider [phone] Source Comments [facility],non-owned Affiliates and Associated Physician Practices is amultiple site organization consisting of ambulatory clinics and hospital sitesin [place], [place], [place] and [place]. This disclosure is being madepursuant to the Care Everywhere program and may not contain all information available regarding this patient. Last updated 17[employer] [facility] Allergies No known active allergies Medications * Be aware that medications may not be up to date on this document. Alwaysverify current medications with the patient. lisinopril-hydr oCHLOROthiazide (PRINZIDE; ZESTORETIC) 10-12.5 MG tablet 5 Active metFORMIN (GLUCOPHAGE) 500 MG tablet 5 Active SITagliptin (JANUVIA) 100 MG tablet Take 1 tablet every day by oral route in the morning for 30 days. Active pregabalin (LYRICA) 150 MG capsule 5 Active raNITIdine (ZANTAC) 300 MG tablet 5 Active naproxen (NAPROSYN) 500 MG tablet TAKE 1 TABLET BY MOUTH TWICE DAILY WITH MEALS Active glimepiride (AMARYL) 4 MG tablet glimepiride 4 mg tablet Active Active Problems No known active problems Family History Medical History Relation Name Comments COPD - Chronic Obstructive Pulmonary Disease Father Asthma Mother COPD - Chronic Obstructive Pulmonary Disease Mother Diabetes - Type 2 Mother Relation Name Status Comments Father Alive Mother Social History Tobacco Use Types Packs/Day Years Used Date Smoking Tobacco: Never Smokeless Tobacco: Never Alcohol Use Standard Drinks/Week Comments No 0 (1 standard drink = 0.6 oz pur e alcohol) Comments Unknown Sex and Gender Information Value Date Recorded Sex Assigned at Not on file Legal Sex Female 9:27 AM CDT Gender Identity Not on file Sexual Orientation Not on file Occupation Industry Job Start Date Job End Date retired Not on file Not on file Not on file Last Filed Vital Signs Vital Sign Reading Time Taken Comments Blood Pressure - - Pulse - - Temperature - - Respiratory Rate - - Oxygen Saturation - - Inhaled Oxygen Concentration - - Weight 72.6 kg (160 lb) 04/10/2018 9:18 AM MORTGAGE LOAN INTERVIEWER Height 152.4 cm (5') 04/10/2018 9:18 AM MORTGAGE LOAN INTERVIEWER Body Mass Index 31.25 04/10/2018 9:18 AM MORTGAGE LOAN INTERVIEWER Plan of Treatment Health Maintenance Due Date Last Done Comments BONE DENSITY TESTING 1950 COLOGUARD (AGES 45-75) - COL ON CA SCREENING 1950 COLON MONITORING 1950 COLONOSCOPY - COLON CA SCREENING 1950 CT COLONOGRAPHY - COLON CA SCREENING 1950 Colorectal Cancer Screening 1950 FIT - COLON CA SCREENING 1950 FLEX SIG - COLON CA SCREENING 1950 LIPID TESTING 1950 HEPATITIS C SCREENING 01/19/1969 DTAP/TDAP/TD VACCINES (1 - Tdap) 1970 PNEUMOCOCCAL VACCINE 50+ (1 of 1 - PCV) 2001 ZOSTER VACCINE (1 of 2) 2001 MAMMOGRAM 02/08/2018 02/09/2016, 08/04/2015, 01/28/2015 SCREENING FOR DIABETES 04/10/2018 COVID-19 VACCINE (1 - 2023-2 5 season) 2023 DEPRESSION SCREENING 03/14/2024 INFLUENZA VACCINE (Season Ended) 2024 Respiratory Syncytial Virus (RSV) Vaccine Pt: or over 60 yrs (1 - 1-dose 75+ series) 2026 HEPATITIS B VACCINE Aged Out No longe r eligible based on patient's age to complete this topic HIB VACCINE Aged Out No longer eligi ble based on patient's age to complete this topic HPV VACCINE Aged Out No longer eligi ble based on patient's age to complete this topic MENINGOCOCCAL (Group B) VACCINE SHARED DECISION-MAKING Aged Out No longer eligible based on patient's age to complete this topic MENINGOCOCCAL GROUPS A/C/Y/W VACCINE Aged Out No longer eligible b ased on patient's age to complete this topic Insurance [facility] MANAGED MEDICARE ADV Care Teams Commodity Broker Relationship Specialty Start Date End Date Ender Nunez DO [address] [place] [address] PCP - General Internal Medicine 04/10/18
--- OUTSIDE RECORDS SUMMARY | 2024-07-18 13:31 | XMS_ITS | Continuity of Care Document ---
Author Organization [facility] Address [address] [place] [address] [address] [place] [address] Phone Care Team Providers Care Distributor Advertising Material Name Role Phone Cornelius Sutton Unavailable Unavailable Advance Directives Directive Yes / No Effective Date File Name No Information Encounters Encounter Description Practice Location Reason(s) For Visit Diagnoses Date Provider Providers Copied on Encounter [facility], [id number] [place] [address] [address], [place], [place], [id number], [place] tel:[phone] [facility] No Information Dec-0 9-200 [address] , [address], [place], [address], [place]. tel:[phone] Family History Family Member Type Diagnosis Age At Onset No Information Payers Payer name Insurance type Covered libertarian ID Authoriza tifuentes(s) [employer] SOI CI [id number] Social History Type Description Quantity Date Captured Comments Sex Female Smoking Status No Information Chief Complaint And Reason For Visit No Information Reason For Referral Reason For Referral No Information History Of Present Illness Encounter Date Complaint History Of Prese nt Illness No Information Functional Status Date Functional Assessmen t No Information Instructions Date Instruction Additional Infor mation No Information Assessments Type Assessment Date No Information Patient Care Teams Name Effective Dates (start - stop) Status Members No Information
--- OUTSIDE RECORDS SUMMARY | 2024-07-18 13:31 | XMS_ITS | Referral Summary ---
Author Organization [facility] Address [address] [place] [address] Care Team Providers Care Manager Fine Dining Name Role Phone Anna Tompkins MD Primary Care Provider [phone] Allergies No known active allergies Medications lisinopril-hydr oCHLOROthiazide (PRINZIDE,ZESTO RETIC) 10-12.5 mg per tabletIndicatio ns:hypertension Take 1 tablet by mouth daily Active traMADol (ULTRAM) 50 mg tablet Take 1 tablet (50 mg total) by mouth every 6 (six) hours as needed for pain Active naproxen (NAPROSYN) 500 mg tablet Take 1 tablet (500 mg total) by mouth 2 (two) times a day with meals Active glimepiride (AMARYL) 2 mg tabletIndicatio ns:type 2 diabetes mellitus Take 1 tablet (2 mg total) by mouth daily before breakfast 90 tablet 3 Active empagliflozin (JARDIANCE) 10 mg tablet Take 1 tablet (10 mg total) by mouth daily 90 tablet 3 Active insulin glargine-lixise natide (Soliqua 100/33) 100 unit-33 mcg/mL insulin pen Inject 45 Units under the skin every morning 15 mL 3 3 Active gabapentin (NEURONTIN) 100 mg capsule Take 2 capsules (200 mg total) by mouth nightly 180 capsule 1 3 Active omeprazole (PriLOSEC) 20 mg capsule Take 1 capsule (20 mg total) by mouth daily 30 capsule 11 3 Active rosuvastatin (CRESTOR) 20 mg tablet Take 1 tablet (20 mg total) by mouth daily 30 tablet 11 3 Active famotidine (PEPCID) 40 mg tablet Take 1 tablet (40 mg total) by mouth daily 30 tablet 11 3 Active meclizine (ANTIVERT) 12.5 mg tablet Take 1 tablet (12.5 mg total) by mouth 3 (three) times a day as needed for dizziness 30 tablet 3 Active Hospital, Clinic, or Other Facility Administered Medication Ordered Dose Route Frequency Start Date End Date Status aspirin chewable tablet 81 mgIndications:Hypertension, essential 81 mg oral Daily 12/28/2022 Active Active Problems Problem Noted Date Diagnosed Date Hypertension, essential 12/28/2022 Assessment & Plan (12/28/2022 12:54 PM CDT): Chronic and stable. At goal <130/80. Continue current medication and will monitor Type 2 diabetes mellitus wit h diabetic neuropathy, with long-term current use of insulin 12/28/2022 Assessment & Plan (12/28/2022 12:55 PM CDT): Dm type 2 with (neuropathy) Recent A1C 8. No foot exam today Continue low carb diet Next A1C - ? Will request outside labs Most recent Microalbumin - ? Continue current medications. Dilated retinal eye exam -Due. Patient to schedule BP at goal <130/80 on ACEI - Continue Vaccines - PCV, Flu, COVID Patient will continue to follow with specialist for this chronic condition Mixed hyperlipidemia 12/28/2022 Assessment & Plan (12/28/2022 12:55 PM CDT): Chronic and stable. Continue current medication. Will obtain lab and adjust meds prn Neuropathy GERD (gastroesophageal reflux disease) Assessment & Plan (12/28/2022 12:54 PM CDT): Chronic and stable. Continue current medication. Will monitor Resolved Problems Problem Noted Date Diagnosed Date Resolved Date Lipoma of forehead 09/27/2017 8 Social History Tobacco Use Types Packs/Day Years Used Date Smoking Tobacco: Never Smokeless Tobacco: Never Tobacco Cessation:Counseling Given: Not Answered Alcohol Use Standard Drinks/Week Comments No 0 (1 standard drink = 0.6 oz pur e alcohol) AUDIT-C Answer Date Recorded Q1: How often do you have a drink containing alc ohol? Monthly or less 12/28/2022 Average Number of Drinks Not on file 023 Q3: How often do you have si x or more drinks on one occasion? Never 12/28/2022 PHQ-2 Answer Date Recorded PHQ-2 Total Score (If total score is 3 or more points, staff should administer the PHQ-9) 0 12/28/2022 Personal Safety Answer Date Recorded Getting School Help Needed Not on file 05/13 Comments Unknown Sex and Gender Information Value Date Recorded Sex Assigned at Not on file Legal Sex Female 10:04 AM CDT Gender Identity Not on file Sexual Orientation Not on file Last Filed Vital Signs Vital Sign Reading Time Taken Comments Blood Pressure 102/64 12/28/2022 9:47 AM CDT Pulse 83 12/28/2022 9:47 AM CDT Temperature 36.1 C (96.9 F) 12/28/2022 9:47 AM CDT Respiratory Rate 20 12/28/2022 9:47 AM CDT Oxygen Saturation 98% 12/28/2022 9:47 AM CDT Inhaled Oxygen Concentration - - Weight 67.6 kg (149 lb) 12/28/2022 9:47 AM CDT Height 152.4 cm (5') 12/28/2022 9:47 AM CDT Body Mass Index 29.1 12/28/2022 9:47 AM CDT Plan of Treatment Not on file Procedures Procedure Name Priority Date/Time Associated Diagnosis Comments DEXA AXIAL SKELETON BONE DENSITY 1 OR MORE SITES Schedule Routine, Read Routine (OP Routine) 01/12/2023 8:25 AM CDT Menopause from Last 3 Months or Most Recently Relevant to Health Maintenance Results * Dexa Axial Skeleton Bone Density 1 or 2 Site (01/12/2023 8:25 AM CDT) Anatomical Region Laterality Modality Body N/A Other 01/12/2023 2:42 PM CDT Narrative 01/12/2023 2:48 PM CDT EXAM DESCRIPTION: DEXA AXIAL SKELETON BONE DENSITY 1 OR MORE SITES REASON FOR STUDY: 72 y/o year old F with given history of: Menopause screening Bottle Tester/Model: G2Link (S/N [id number]) CLINICAL INFORMATION: Current height: 60 inches Maximum height: 60 inches Weight: 150 pounds Risk factors: Postmenopausal COMPARISON: None available FINDINGS: AP LUMBAR SPINE L1-L4: Total BMD is 0.977 g/cm2 T-score is -0.6 LEFT HIP: Total BMD is 0.767 g/cm2 T-score is -1.4 Femoral neck BMD is 0.629 g/cm2 T-score is -2.0 FRAX: 10 year risk for a major osteoporotic fracture is 12 %, 10 year risk for a hip fracture is 2.4 % IMPRESSION: Low Bone Mass. REFERENCE: Bone mineral density: Normal (T-score above or = -1.0) Low bone mass (T-score between -1.0 and -2.5) replaces the previously used term osteopenia Osteoporosis (T-score = or below -2.5) Medical evaluation for secondary causes of low bone mineral density may be appropriate. FRAX is a World Health Organization validated fracture risk assessment tool that calculates a person's 10 year probability of a major osteoporosis related fracture and hip fracture. According to the National Osteoporosis Foundation guidelines, postmenopausal women and men age 50 or older with low bone mass and a 10 year probability of a major osteoporosis related fracture = or greater than 20% or a 10 year probability of a hip fracture = or greater than 3% should be considered for treatment. For further information, including treatment recommendations, please refer to the 2019 ISCD Official Positions (http://www.iscd.org) and the NOF's Clinician's Guide to Prevention and Treatment of Osteoporosis (http://www.nof.org/professionals/clinical-guidelines) THIS IS AN ELECTRONICALLY VERIFIED FINAL REPORT 01/12/2023 2:48 PM - Electronically signed by Tato Lino M.D. MF: [id number] Report ID: [id number] Reading Location: [id number] Procedure Note Tato Lino MD - 01/12/2023 EXAM DESCRIPTION: DEXA AXIAL SKELETON BONE DENSITY 1 OR MORE SITES REASON FOR STUDY: 72 y/o year old F with given history of: Menopause screening Bottle Tester/Model: G2Link (S/N [id number]) CLINICAL INFORMATION: Current height: 60 inches Maximum height: 60 inches Weight: 150 pounds Risk factors: Postmenopausal COMPARISON: None available FINDINGS: AP LUMBAR SPINE L1-L4: Total BMD is 0.977 g/cm2 T-score is -0.6 LEFT HIP: Total BMD is 0.767 g/cm2 T-score is -1.4 Femoral neck BMD is 0.629 g/cm2 T-score is -2.0 FRAX: 10 year risk for a major osteoporotic fracture is 12 %, 10 year risk for ahip fracture is 2.4 % IMPRESSION: Low Bone Mass. REFERENCE: Bone mineral density: Normal (T-score above or = -1.0) Low bone mass (T-score between -1.0 and -2.5) replaces thepreviously used term osteopenia Osteoporosis (T-score = or below -2.5) Medical evaluation for secondary causes of low bone mineral density may be appropriate. FRAX is a World Health Organization validated fracture risk assessmenttool that calculates a person's 10 year probability of a major osteoporosisrelated fracture and hip fracture. According to the National OsteoporosisFoundation guidelines, postmenopausal women and men age 50 or older with low bonemass and a 10 year probability of a major osteoporosis related fracture = or greater than 20% or a 10 year probability of a hip fracture = or greaterthan 3% should be considered for treatment. For further information, including treatment recommendations, please referto the 2019 ISCD Official Positions (http://www.iscd.org) and the NOF's Clinician's Guide to Prevention and Treatment of Osteoporosis (http://www.nof.org/professionals/clinical-guidelines) THIS IS AN ELECTRONICALLY VERIFIED FINAL REPORT 01/12/2023 2:48 PM - Electronically signed by Tato Lino M.D. MF: [email or web address] Report ID: [id number] Reading Location: [id number] Anna Tompkins MD IMG DXA PROCEDURES Final Res ult from Last 3 Months or Most Recently Relevant to Health Maintenance Insurance [employer] CLAIMS OFFICE [facility] MEDICARE ADVANTAGE AETNA MEDICARE [facility] MEDICARE Address: [address] [place] [address] Care Teams Manager Fine Dining Relationship Specialty Start Date End Date Anna Tompkins MD [address] [place] [address] PCP - General Family Medicine 12/28/22
--- OUTSIDE RECORDS SUMMARY | 2024-07-18 13:31 | XMS_ITS | Clinical Summary ---
Author Organization [facility] Address [address] [place] [id number] Care Team Providers Care Zinc Plate Grainer Name Role Phone Anna Tompkins MD Primary Care Provider [phone] Allergies No known active allergies Medications lisinopril-hydr [...] Resolved Date Lipoma of forehead 09/27/2017 8 Surgical History Surgery Date Site/Laterality Comments HYSTERECTOMY CARPAL TUNNEL RELEASE MENISCUS SURGERY Right SECTION Medical History Medical History Date Comments Diabetes mellitus (HCC) Hypertension Neuropathy GERD (gastroesophageal reflux disease) Family History Medical History Relation Name Comments Diabetes Mother Epilepsy Sister Relation Name Status Comments Mother Sister Social History Tobacco Use Types Packs/Day Years [...] on file Sexual Orientation Not on file Obstetrics History Last Filed Vital Signs Vital Sign Reading [...] 12/28/2022 9:47 AM CDT Plan of Treatment Health Maintenance Due Date Last Done Comments Albumin Creatinine Ratio, Urine 1951 Colon Cancer Screening-Colonoscopy 1950 Hemoglobin A1C 1951 Hepatitis C Screening 1950 eGFR 1950 Dilated Eye Exam 1951 Foot Exam 1951 Lipid Panel 1951 DTaP/Tdap/Td Vaccine (1 - Tdap) 1962 Hepatitis B Screening 1969 Pneumococcal vaccine 65+ (1 of 2 - PCV) 1970 Zoster Vaccine (1 of 2) 2001 Well Visit 65+ 01/25/2016 Covid-19 Vaccine ( season) 2023 03/22/2021, 05/27/2020, 04/16/2020 Breast Cancer Screening-Mammogram 12/18/2023 023 Depression Screening 12/29/2023 12/28/2022 Fall Risk Assessment 12/29/2023 12/28/2022 Influenza Vaccine (Season Ended) 2024 Osteoporosis Screening-Bone Density Scan 01/12/2025 01/12/2023 Procedures Procedure Name Priority Date/Time Associated Diagnosis [...] F with given history of: Menopause screening Keyliner/Model: DigitalTangible SL (S/N [id number]) CLINICAL INFORMATION: Current height: 60 inches Maximum [...] Tato Lino M.D. MF: JORGE Report ID: [id number] Reading Location: [id number] Procedure Note Tato Lino MD - 01/12/2023 EXAM DESCRIPTION: DEXA AXIAL SKELETON BONE DENSITY 1 OR MORE SITES REASON FOR STUDY: 72 y/o year old F with given history of: Menopause screening Keyliner/Model: Myntra Discovery SL (S/N [id number]) CLINICAL INFORMATION: Current height: 60 inches Maximum [...] Tato Lino M.D. MF: JORGE Report ID: [id number] Reading Location: [place] [address] Anna Tompkins MD IMG DXA PROCEDURES Final Res ult from Last 3 Months or Most Recently Relevant to Health Maintenance [facility]S OFF[facility] U[employer] MEDICARE ADVANTAGE [employer] MEDICARE GOLD Care Teams Zinc Plate Grainer Relationship Specialty Start Date End Date Anna Tompkins MD [address] [place] [address] PCP - General Family Medicine 12/28/22
--- OUTSIDE RECORDS SUMMARY | 2024-07-18 13:31 | XMS_ITS | Data Portability ---
Author Organization JUAN CARLOS ANABELLTanisha Address [address] [place] [address] Assessment No assessment recorded. Plan of Treatment Reminders Order Date Submit Date Provider Last Modified By Organization Details Last Modified Time Details Appointments None recorded. Lab HbA1c (hemoglobi n A1c), blood 2015 016 [facility], [address] [place] [address], [address], [place], [address], 6 06:13:59 CK (creatine kinase), total, serum 2015 016 [facility], [address] [place] [address], [address], [place], [address], 6 06:14:00 CMP, serum or plasma 2015 016 [facility], [address] [place] [address], [address], [place], [address], 6 06:13:58 lipid panel, serum 2015 016 [facility], [address] [place] [address], [address], [place], [address], 6 06:13:59 Referral colonoscop y referral - Please call patient to schedule 2015 016 MEENA Mercer MD, [address], [place], [address], 6 12:30:05 Procedures None recorded. Surgeries None recorded. Imaging None recorded. Medication Orders pioglitazo ne 15 mg tablet 2015 016 [facility], [address], [place], [place], [id number], 6 04:30:32 glimepirid e 4 mg tablet 2015 016 DBA_PATCH_ [id number] [facility], [address], [place], [place], [id number], 6 04:30:32 glimepirid e 4 mg tablet 2015 016 [facility], [address], [place], [id number], 6 04:30:20 ranitidine 300 mg tablet 2015 016 [facility]BA[facility]PATCH_ [id number] [facility], [address], [place], [id number], 6 04:29:53 lisinopril 10 mg-hydroch lorothiazi de 12.5 mg tablet 2015 016 [facility], [address], [place], [id number], 6 04:29:58 azithromyc in 250 mg tablet 2015 016 DBA_PATCH_ [id number] [facility], [address], [place], [id number], 6 04:30:31 ibuprofen 800 mg tablet 2015 016 DBA_PATCH_ [id number] [facility], [address], [place], [place], [id number], 6 04:30:29 prednisone 20 mg tablet 2015 016 [facility], [address], [place], [place], [id number], 6 10:30:27 loratadine 10 mg tablet 2015 016 [email or web address] 6 [facility] #20712, [address], [place], [place], [id number], 6 10:00:37 fluticason e propionate 50 mcg/actuat ion nasal spray,susp ension 2015 [email or web address] [place], [place] [address] #70554, [address], [place], [place], [id number], 6 10:00:37 Depo-Medro l 80 mg/mL suspension for injection 2015 016 [email or web address] Not available 6 11:09:41 prednisone 20 mg tablet 2015 [email or web address] [place], [place] [address] #15800, [address], [place], [place], [id number], 6 11:03:21 Tradjenta 5 mg tablet 2015 016 [facility], [address], [place], [place], [id number], 6 10:54:52 prednisone 20 mg tablet 2015 016 [email or web address] 6 [facility], [address], [place], [place], [id number], 6 10:54:45 Patient TargetsNo targets recorded. Patient InstructionsNo instructions recorded. Reason for Referral Colonoscopy Referral for Scr eening for malignant neoplasm of colon Please call patient to schedule Referring Physician: Cornelius Vieira, Family Medicine, Encounter Date: 07/21/2015 Results Created Date Observation Date Name Description Value Unit Range Abnormal Flag Note LastModifiedBy Organization Detail LastModifiedTime 11/05/19 16 11/06/2015 CMP, serum or plasm a glucose, serum 230 mg/dL 65-99 above high normal Not Available [facility] ([facility]) [address] [place], [address], 11/06/2015 06:13:58 11/05/19 16 11/06/2015 CMP, serum or plasm a BUN 14 mg/dL 8-27 Not Available [facility] ([facility]) [address] [place], [address], 11/06/2015 06:13:58 11/05/19 16 11/06/2015 CMP, serum or plasm a creatinine, serum 0.87 mg/dL 0.57-1 .00 Not Available [facility] ([facility]) [address] [place], [address], 11/06/2015 06:13:58 11/05/19 16 11/06/2015 CMP, serum or plasm a eGFR if nonafricn AM 71 mL/mi n/1.7 3 >59 Not Available [facility] ([facility]) [address] [place], [address], 11/06/2015 06:13:58 11/05/19 16 11/06/2015 CMP, serum or plasm a eGFR if africn AM 81 mL/mi n/1.7 3 >59 Not Available [facility] ([facility]) [address] [place], [address], 11/06/2015 06:13:58 11/05/19 16 11/06/2015 CMP, serum or plasm a BUN/creatini ne ratio 16 11-26 Not Available [facility] ([facility]) [address] [facility] [place], [address], 11/06/2015 06:13:58 11/05/1911/06/2015 CMP, serum or plasm a sodium, serum 143 mmol/ L 134-14 4 Not Available [facility] ([facility]) [address] [facility] [place], [address], 11/06/2015 06:13:58 11/05/1911/06/2015 CMP, serum or plasm a potassium, serum 4.5 mmol/ L 3.5-5. 2 Not Available [facility] ([facility]) [address] [facility] [place], [address], 11/06/2015 06:13:58 11/05/1911/06/2015 CMP, serum or plasm a chloride, serum 98 mmol/ L 97-108 Not Available [facility] ([facility]) [address] [facility] [place], [address], 11/06/2015 06:13:58 11/05/1911/06/2015 CMP, serum or plasm a carbon dioxide, total 21 mmol/ L 18-29 Not Available [facility] ([facility]) [address] [facility], [place], [address], 11/06/2015 06:13:58 11/05/1911/06/2015 CMP, serum or plasm a calcium, serum 9.7 mg/dL 8.7-10 .3 Not Available [facility] ([facility]) [address] [facility] [place], [address], 11/06/2015 06:13:58 11/05/1911/06/2015 CMP, serum or plasm a protein, total, serum 6.8 g/dL 6.0-8. 5 Not Available [facility] ([facility]) [address] [facility] [place], [address], 11/06/2015 06:13:58 11/05/1911/06/2015 CMP, serum or plasm a albumin, serum 4.3 g/dL 3.6-4. 8 Not Available [facility] ([facility]) [address] [facility] [place], [address], 11/06/2015 06:13:58 11/05/1911/06/2015 CMP, serum or plasm a globulin, total 2.5 g/dL 1.5-4. 5 Not Available [facility] ([facility]) [address] [facility] [place], [address], 11/06/2015 06:13:58 11/05/1911/06/2015 CMP, serum or plasm a A/G ratio 1.7 1.1-2. 5 Not Available [facility] ([facility]) [address] [facility] [place], [address], 11/06/2015 06:13:58 11/05/1911/06/2015 CMP, serum or plasm a bilirubin, total 0.3 mg/dL 0.0-1. 2 Not Available [facility] ([facility]) [address] [facility] [place], [address], 11/06/2015 06:13:58 11/05/1911/06/2015 CMP, serum or plasm a alkaline phosphatase, S 84 IU/L 39-117 Not Available [facility] ([facility]) [address] [place], [address], 11/06/2015 06:13:58 11/05/1911/06/2015 CMP, serum or plasm a AST (SGOT) 22 IU/L 0-40 Not Available [facility] ([facility]) [address] [place], [address], 11/06/2015 06:13:58 11/05/1911/06/2015 CMP, serum or plasm a ALT (SGPT) 22 IU/L 0-32 Not Available [facility] ([facility]) [address] [place], [address], 11/06/2015 06:13:58 11/05/19 16 11/06/2015 lipid panel , serum cholesterol, total 239 mg/dL 100-19 9 above high normal Not Available [facility] ([facility]) [address] [facility], [place], [address], 11/06/2015 06:13:59 11/05/19 16 11/06/2015 lipid panel , serum triglyceride s 166 mg/dL 0-149 above high normal Not Available [facility] ([facility]) [address] [facility], [place], [address], 11/06/2015 06:13:59 11/05/19 16 11/06/2015 lipid panel , serum HDL cholesterol 45 mg/dL >39 ACCOR DING TO ATP-I II GUIDE LINES , HDL-C >59 MG/DL IS CONSI DERED A NEGAT JORDYN RISK FACTO R FOR CHD. Not Available [facility] ([facility]) [address] [facility], [place], [address], 11/06/2015 06:13:59 11/05/19 16 11/06/2015 lipid panel , serum VLDL cholesterol miko 33 mg/dL 5-40 Not Available [facility] ([facility]) [address] [facility], [place], [address], 11/06/2015 06:13:59 11/05/19 16 11/06/2015 lipid panel , serum LDL cholesterol calc 161 mg/dL 0-99 above high normal Not Available [facility] ([facility]) [address] [facility], [place], [address], 11/06/2015 06:13:59 11/05/19 16 11/06/2015 lipid panel , serum comment: DIRECTOR PERSONAL Not Available [facility] ([facility]) [address] [facility], [place], [address], 11/06/2015 06:13:59 11/05/19 16 11/06/2015 lipid panel , serum LDL/HDL ratio 3.6 ratio _unit s 0.0-3. 2 above high normal LDL/H DL RATIO MEN WOMEN 1/2 AVG.R ISK 1.0 1.5 AVG.R ISK 3.6 3.2 2X AVG.R ISK 6.2 5.0 3X AVG.R ISK 8.0 6.1 Not Available [facility] ([facility]) [address] [facility], [place], [address], 11/06/2015 06:13:59 11/05/19 16 11/06/2015 HbA1c (hemo globi n A1c), blood hemoglobin A1C 8.4 % 4.8-5. 6 above high normal PRE-D IABET ES: 5.7 - 6.4 DIABE BRIDGER: >6.4 GLYCE IZABELA CONTR OL FOR ADULT S WITH DIABE BRIDGER: <7.0 Not Available [facility] ([facility]) [address] [facility], [place], [address], 11/06/2015 06:13:59 11/05/19 16 11/06/2015 CK (crea katie kinas e), total , serum creatine kinase,total ,serum 42 U/L 24-173 Not Available [facility] ([facility]) [address] [facility], [place], [address], 11/06/2015 06:14:00 06/25/19 16 12/24/2014 dexa PT NAME: Noni CAMPBELL : 1949 PT SEX/AG E: F/63 PT ACCT NUMBER : [id number] PT MR#: [id number] ROOM/B ED: PT STATUS : REG CLI DATE OF EXAMIN ATION: ORDERI NG PHYSIC LINDA: Hadley RAMIREZ ON P.A. ATTEND ING PHYSIC LINDA: Hadley RAMIREZ ON, P.A. DICTAT [facility] PHYSIC LINDA: Everett PRADO M.D. 007 [id number] 7.001A [place] 08:50: 00 41.007 2MAM ([facility]) : DIGITA L MAMM SCREEN -MUNA 08:50: 00 INDICA TION: Screen ing TECHNI QUE: Routin e digita l bilate ral screen ing mammog la submit miracle for review . CAD analys is perfor med and interp reted. COMPAR DYLON: Compar dylon to multip le prior studie s. The oldest study review ed is 010. FINDIN GS: The breast s are hetero genous ly dense, which may obscur e small masses . There is a new cluste r of calcif icatio ns in the upper- outer quadra nt of the left breast with a nonspe cific appear ance. There is a develo ping asymme try latera lly in the right breast on CC view. IMPRES GISELE: 1: Develo ping right breast asymme try and cluste r nonspe cific left breast calcif icatio ns. Recomm end additi onal views of both breast s. Possib le additi onal right breast ultras ound. BI-RAD S CATEGO RY 0 - INCOMP LETE STUDY, NEED ADDITI ONAL IMAGIN G EVALUA TION. __ Review ed, dictat ed and finali zed at Locati on A. __ Electr onical ly signed by: HUMBLE PRDAO Date: Time: 10:08 HUMBLE PRADO M.D.__ ___ [facility] [address] [place] [address] (Imaging) [address], [address], 07/21/2015 10:50:37 08/05/19 16 08/04/2015 digit al mammo gram, speci al views , bilat eral No observ ation record ed. [email or web address] Not Available 2015 15:13:33 02/10/20 16 02/10/2016 MAMMO , diagn ostic , bilat eral, w/ CAD No observ ation record ed. [facility] [address] [place] [address], [address], 08/12/2016 15:28:21 07/10/19 17 02/09/2016 MAMMO , scree mariano, bilat eral No observ ation record ed. [facility] Not Available 2016 15:27:40 07/20/19 17 03/10/2016 MAMMO , scree mariano, bilat eral No observ ation record ed. [facility] ([facility] Scheduling [address] [place], [address], 08/12/2016 15:27:18 11/11/19 17 02/09/2016 MAMMO , scree mariano, bilat eral No observ ation record ed. [email or web address] [facility] (Radiology) [address] [place], [address], 11/26/2016 17:52:33 Result Notes None recorded. Problems Name Problem SNOMED Code Status Onset Date Resolution Date Notes Provider Name and Address Organization Details Recorded Time Neuropathy 793284088 Active Cornelius Vieira PA-C Attn: Accountjuan carlos garcia,[address] [facility], [place], [place], [address] [place] [address] 2, [place] - [facility] 6 14:37:39 Gastroesoph ageal reflux disease 595805044 Active Cornelius Vieira PA-C Attn: Accountin g,[address] [facility], [place], [place], [address] [place] [address], [place] - [facility] 6 10:00:37 Type 2 diabetes mellitus 31244548 Active Cornelius Vieira PA-C Attn: Accountin g,[address] [place], [place], [address] [place] [address] 2, [facility] - [facility] 6 10:00:37 Essential hypertensio n 12719196 Active Cornelius Vieira PA-C Attn: Accountin g,[address] [place], [place], [address] [place] [address], [place] - [facility] 6 10:00:37 Hyperlipide bandar 08874612 Active Cornelius Vieira PA-C Attn: Accountin g,[address] [facility], [place], [address] [place] [address], [place] [facility] 6 10:00:37 Obesity 505537239 Active Cornelius Vieira PA-C Attn: Accountin g,[address] [facility], [place], [place], [address] [place] [address], [place] [facility] 6 10:00:37 Mammography abnormal 317305678 Active Cornelius Vieira PA-C Attn: Accountin g,[address] [facility], [place], [address] [place] [address], [place] [facility] 6 10:54:44 Knee pain Active Cornelius Vieira PA-C Attn: Accountin g,[address] [place], [place], [address] [place] [address] 2, [place] - [facility] 6 10:30:18 Acute labyrinthit is 3522796064618 03 Active Cornelius Vieira PA-C Attn: Ran garcia,[address] [facility], [place], [address], [place] [facility] 6 15:12:25 Allergic rhinitis 13320273 Active Cornelius Vieira PA-C Attn: Ran garcia,[address] [facility], [place], [address], [place] [facility] 6 10:00:37 Acute pharyngitis 575516271 Active 2015 Cornelius Vieira PA-C Attn: Ran garcia,[address] [facility], [place], [address], [place] [facility] 6 16:52:04 Problem Notes None recorded. Procedures Surgical History Date Name Laterality Status Provider Name and Address Organization Details Recorded Time Caesarean Section completed Eunice Beltran MA [facility] 02/20/2014 12:39:53 Hysterectomy completed Eunice Beltran MA [facility] 02/20/2014 12:39:53 Imaging Results Imaging Date Name Status LastModified by [facility] Details LastModified Time 12/24/2014 dexa completed nas Vieira [facility] (Imaging) [address] [facility] [address] [place] [address], [address], 07/21/2015 10:50:37 08/04/2015 digital mammogram, special views, bilateral completed Information not available 08/21/2015 15:13:33 02/10/2016 MAMMO, diagnostic, bilateral, w/ CAD [email or web address] [address] [place], [address], 08/12/2016 15:28:21 02/09/2016 MAMMO, screening, bilateral completed [email or web address] Information not available 08/12/2016 15:27:40 03/10/2016 MAMMO, screening, bilateral completed [email or web address] [facility] ([facility] Scheduling [address] [place], [address], 08/12/2016 15:27:18 02/09/2016 MAMMO, screening, bilateral completed [facility] (Radiology) [address] [place], [address], 11/26/2016 17:52:33 Procedure Notes None recorded. Medical Equipment None Reported. Allergies No known drug allergies Medications Name Sig Start Date Stop Date Status Note LastModified by Organization Details LastModified Time cyclobenza zamzam 10 mg tablet Take 1 tablet as needed by oral route at bedtime for 30 days. active Not Available Not Available No t Available pioglitazo ne 15 mg tablet Take 1 tablet every day by oral route in the morning for 30 days. 2015 active Not Available Not Available Not Avai lable metformin 500 mg tablet TAKE 2 TABLETS TWICE DAILY active Not Available Not Available No t Available BD Alcohol Swabs active Not Available Not Available Not Available azithromyc in 250 mg tablet TAKE 2 TABLETS (500 MG) BY ORAL ROUTE ONCE DAILY FOR 1 DAY THEN 1 TABLET (250 MG) BY ORAL ROUTE ONCE DAILY FOR 4 DAYS 2015 active Not Available Not Available Not Avai lable ibuprofen 800 mg tablet Take 1 tablet 3 times a day by oral route for 30 days. 2015 active Not Available Not Available Not Avai lable tramadol 37.5 mg-acetami nophen 325 mg tablet active Not Available Not Available No t Available ranitidine 300 mg tablet TAKE 1 TABLET EVERY DAY BEFORE A MEAL DIRECTED active Not Available Not Available No t Available prednisone 20 mg tablet TAKE 2 TABLETS BY MOUTH TWICE DAILY X 2 DAYS, 1 TABLET TWICE DAILY X 5 DAYS, 1/2 TABLET TWICE DAILY X 2 DAYS, THEN 1/2 TABLET X 1 DAY active Not Available Not Available No t Available meclizine 12.5 mg tablet Take 1 tablet 3 times a day by oral route as needed for 30 days. active Not Available Not Available No t Available acyclovir 800 mg tablet active Not Available Not Available Not Available Depo-Medro l 80 mg/mL suspension for injection 2015 active patient tolerated injection well Not Available Not Available Not Available Cipro 500 mg tablet Take 1 tablet every 12 hours by oral route for 10 days. 2013 active Not Available Not Available Not Avai lable glimepirid e 4 mg tablet TAKE 1 TABLET TWICE DAILY active Not Available Not Available No t Available gabapentin 300 mg capsule Take 2 capsules 3 times a day by oral route for 30 days. 2013 active Not Available Not Available Not Avai lable lisinopril 10 mg-hydroch lorothiazi de 12.5 mg tablet TAKE 2 TABLETS EVERY DAY active Not Available Not Available No t Available fluticason e propionate 50 mcg/actuat ion nasal spray,susp ension Inhale 1 spray twice a day by intranasa l route for 30 days. 2015 active Not Available Not Available Not Avai lable loratadine 10 mg tablet Take 1 tablet every day by oral route in the morning for 30 days. active Not Available Not Available No t Available naproxen 500 mg tablet TAKE 1 TABLET TWICE DAILY WITH MEALS active Not Available Not Available No t Available diabetic supplies, [place]. active Not Available Not Available N ot Available Lyrica 150 mg capsule TAKE ONE CAPSULE BY MOUTH TWICE DAILY 2015 active Not Available Not Available Not Avai lable Januvia 100 mg tablet TAKE 1 TABLET BY MOUTH EVERY MORNING active Not Available Not Available No t Available Voltaren 1 % topical gel APPLY 2 GRAM TO THE AFFECTED AREA(S) BY TOPICAL ROUTE 4 TIMES PER DAY active Not Available Not Available No t Available Tradjenta 5 mg tablet Take 1 tablet every day by oral route in the morning for 30 days. 2015 active Not Available Not Available Not Avai lable Accu-Chek FastClix Lancing Device active Not Available Not Available Not Available Accu-Chek SmartView Test Strips active Not Available Not Available Not Available Accu-Chek Kait USE TO CHECK BLOOD SUGARS active Not Available Not Available No t Available Vitals Date Recorded Body height Body temperature Heart rate Body weight Oxygen saturation Oxygen saturation in Arterial blood by Pulse oximetry Body mass index (BMI) Systolic blood pressure Diastolic blood pressure Provider Name and Address Organization Details Last Updated DateTime 6 161.925 cm 97.9 [degF] 91 /min 19840.1 1053 g 98 % 98 % 29.2 kg/m2 122 mm[Hg] 70 mm[Hg] Anisa Frausto [place] - [facility] 6 10:14:53 Date Recorded Heart rate Body height Body mass index (BMI) Oxygen saturation Oxygen saturation in Arterial blood by Pulse oximetry Body temperature Body weight Systolic blood pressure Diastolic blood pressure Provider Name and Address Organization Details Last Updated DateTime 6 87 /min 161.925 cm 28.8 kg/m2 98 % 98 % 98.3 [degF] 83657.1 85293 g 130 mm[Hg] 80 mm[Hg] Anisa Frausto MA [facility] 6 09:43:07 Date Recorded Body height Oxygen saturation Oxygen saturation in Arterial blood by Pulse oximetry Heart rate Body temperature Body weight Body mass index (BMI) Systolic blood pressure Diastolic blood pressure Provider Name and Address Organization Details Last Updated DateTime 6 161.925 cm 99 % 99 % 98 /min 98.9 [degF] 43232.5 2 g 28.8 kg/m2 140 mm[Hg] 80 mm[Hg] Anisa Frausto MA [facility] 6 16:27:39 Social History Question Answer Notes LastModified by [employer] Details LastModified Time Tobacco Smoking Status Never Smoker Eunice Beltran MA [facility], [facility] 02/20/2014 12:39:53 What Is Your Level Of Alcohol Consumption? None Information not available 02/20/2014 What Is Your Level Of Caffeine Consumption? Heavy Information not available 02/20/2014 Are You A Caregiver? No Information not available 02/20/2014 How Much Tobacco Do You Chew? None Information not available 02/20/2014 What Type Of Diet Are You Following? REGULAR Information not available 02/20/2014 Do You Have A Directive To Physicians? No Information not available 02/20/2014 Marital Status Informatio n not available 02/20/2014 Do You Have A Medical Power Of Packing Line Worker? No Information not available 02/20/2014 Do You Have An Out Of Hospital DNR? No Information not available 02/20/2014 How Much Tobacco Do You Smoke? No Information not available 02/20/2014 General Stress Level Medium Information not available 02/20/2014 Sex: Unknown Functional Status Question Answer Note LastModified by [employer] Details LastModified Time Do you have transportation difficulties? No Information not available 02/20/2014 What is your exercise level? None Information not available 02/20/2014 Mental Status None recorded. Family History Relationship Description Onset Age of this Age Resolved Age Notes LastModified by Organization Details LastModified Time Mother Asthma Not available 07/08/2014 14:25:31 Mother Diabetes mellitus Not available 2014 14:25:31 Mother Hypertensive disorder Not available 2014 14:25:31 Father Kidney disease Not available 2014 14:25:31 Medical History Condition Response Coronary Artery Disease N Other N High Blood Pressure Y Atrial Fibrillation N Kidney or Bladder Problems N Thyroid Problems N GI Problems N Depression N COPD N Blood Clots N Skin Problems N Anemia N Heart Attack ([place]) N Anxiety Disorder N Diabetes Y Muscle, Joint, or Bone Problems N Seizures/Epilepsy N Acid Reflux (GERD) N Cancer N Stroke N Asthma N Allergies N High Cholesterol N Hepatitis N Liver Disease N Headaches N Osteoporosis N Heart Failure N Gynecological HistoryNo gynecological history recorded. Obstetrics History GPAL:G 0 P 0 0 0 0 Past Encounters Encounter ID Performer Location Encounter Start Date Encounter Closed Date Diagnosis/Indication Diagnosis SNOMED-CT Code Diagnosis ICD10 Code Diagnosis Note [id number] MD Gloria Bedolla (Adult Med) [address] [place] [phone] 02/20/2014 12:11:53 02/20/2014 13:07:31 Type 2 diabetes mellitus 45198655 Essential hypertension 51362061 Hyperlipidemia 31213379 Obesity [id number] WILY Ward (Adult Med) [address] [place] [phone] 07/08/2014 13:48:12 07/08/2014 16:51:33 Type 2 diabetes mellitus 49005018 Neuropathy 587659949 Essential hypertension 96326290 Gastroesop hageal reflux disease 191864659 Adult [facility] th examination [id number] WILY Ward (Adult Med) [address] [place], [place] [address] [phone] 01/03/2015 15:44:49 01/03/2015 16:20:22 Adult health examination 552635042 Z00.00 Essential hypertension 12299646 I10 Gastroesop hageal reflux disease 930304762 K21.9 Hyperlipidemia 96827534 E78.5 Mammography abnormal 168 498171 R92.8 Neuropathy 360111049 G62 .9 Obesity 224318780 E66.9 Type 2 nicolle betes mellitus 42020900 E11.9 [id number] WILY Ward (Adult Med) [address] [place] [address] [phone] 03/04/2015 10:26:00 03/04/2015 11:28:10 Knee pain 68440150 M25.561 Type 2 nicolle betes mellitus 44984452 E11.9 [id number] WILY Ward (Adult Med) [address] [place] [address] [phone] 05/26/2015 10:00:38 05/26/2015 15:09:01 Essential hypertension 62201759 I10 Gastroesop hageal reflux disease 654073816 K21.9 Knee pain 07009346 M25.5 61 medial aspect anteriorly 5 months, no trauma Hyperlipidemia 13221904 E78.5 Neuropathy 665353993 G62 .9 Obesity 503262949 E66.9 Type 2 nicolle betes mellitus 86271796 E11.9 [id number] WILY Ward (Adult Med) [address] [place] [address] [phone] 06/05/2015 14:44:38 06/05/2015 17:27:42 Acute labyrinthitis [id number] 44015 H83.09 first episode ever Essential hypertension 01909142 I10 Hyperlipidemia 44104921 E78.5 Neuropathy 247683925 G62 .9 Obesity 904169270 E66.9 Type 2 nicolle betes mellitus 34468631 E11.9 [id number] WILY Ward (Adult Med) [address] [place] [address] [phone] 0 07/21/2015 10:05:09 07/21/2015 10:59:29 Gastroesophageal reflux disease 967869441 K21.9 Hyperlipidemia 47568727 E78.5 Knee pain 11723964 M25.5 61 medial aspect anteriorly 5 months, no trauma Mammography abnormal 168 025142 R92.8 Neuropathy 876270336 G62 .9 Obesity 661935892 E66.9 Type 2 nicolle betes mellitus 97150914 E11.9 Screening for malignant neoplasm of colon 414218621 Z12.11 [id number] Wanda Moss MD [facility] (Adult Med) [address] [place] [address] [phone] 09/26/2015 10:56:33 09/29/2015 09:19:55 Knee pain 00012722 M25.561 medial aspect anteriorly 5 months, no trauma [id number] Wanda Moss MD [facility] (Adult Med) [address] [place] [address] [phone] 10/20/2015 09:10:39 10/20/2015 10:05:22 Adult health examination 872815762 Z00.00 Essential hypertension 68885184 I10 Gastroesop hageal reflux disease 897081729 K21.9 Hyperlipidemia 05806132 E78.5 Neuropathy 520045360 G62 .9 Obesity 496554566 E66.9 Type 2 nicolle betes mellitus 28815615 E11.9 Knee pain 67898871 M25.5 61 medial aspect anteriorly 5 months, no trauma Allergic rhinitis 139282 04 J30.9 [id number] Wanda Moss MD [facility] (Adult Med) [address] [place] [address] [phone] 11/13/2015 09:50:18 11/13/2015 16:32:51 Knee pain 95620707 M25.561 medial aspect anteriorly 5 months, no trauma [id number] Wanda Moss MD [facility] (Adult Med) [address] [place] [address] [phone] 01/02/2016 16:06:58 01/02/2016 17:07:17 Acute pharyngitis 700275595 J02.9 Type 2 nicolle betes mellitus 18758060 E11.9 Essential hypertension 76790021 I10 Gastroesop hageal reflux disease 889174701 K21.9 Health Concerns Section Related Observation LastModified by Organization Detai ls LastModified Time None Recorded Concern Status LastModified by Organization Details LastModified Time None Recorded Advance Directives Directive None Recorded Payers Encounter Date Sequence Insurance Name Policy Number Policy Moura Covered Member ID Moura Member ID Guarantor Name 07/21/2015 1 [facility] [id number] Carlene Long Adrian [id number] Carlene Adrian 09/26/2015 1 [facility] [id number] Carlene Long Mcculloch [id number] Carlene Adrian 10/20/2015 1 [facility] [id number] Carlene Long Adrian [id number] Carlene Adrian 11/13/2015 1 [facility] [id number] Carlene Long Mcculloch [id number] Carlene Mcculloch 01/02/2016 1 [facility] [id number] Carlene Long Adrian [id number] Carlenebin Campbell Notes Date Note Type Note Provider Name and Address Organization Details Recorded Time 10/20/2015 text/html left ear pops , snaps. right knee pain , helped with depomedrol Cornelius Vieira PA-C Attn: [address] [place], [address], [facility] 10/20/2015 13:20:54 01/02/2016 text/html sore throat 3 days ; 15 y/o same symptoms Cornelius Vieira PA-C Attn: [facility] [place], [address], [facility] 01/02/2016 17:29:41 OBGyn Episode No OBEpisode recorded.
--- NOTE | 2024-07-18 14:30 | NEURO_ITS ---
Impression: # Complains of numbness of hands. History of mild diabetes. ? # Left Carpal Tunnel Syndrome. # Cross innervation ulnar to median noted. ? # No ulnar neuropathy. ? # Normal needle/EMG exam. Nerve Conduction Studies Anti Sensory Summary Table ?Stim Site NR Peak (ms) P-T Amp (?V) Site1 Site2 Delta-P (ms) Dist (cm) Carmelo (m/s) Left Median Anti Sensory (2-3nd Digit) Wrist ? 7.4 7.1 Wrist 2-3nd Digit 7.4 14.0 19 Wrist ? 7.5 5.3 Wrist 2-3nd Digit 7.4 14.0 19 Right Median Anti Sensory (2-3nd Digit) Wrist ? 2.3 23.4 Wrist 2-3nd Digit 2.3 14.0 61 Wrist ? 2.9 29.8 Wrist 2-3nd Digit 2.3 14.0 61 Left Radial Anti Sensory (Base 1st Digit) Wrist ? 2.0 46.2 Wrist Base 1st Digit 2.0 0.0 Right Radial Anti Sensory (Base 1st Digit) Wrist ? 2.3 39.4 Wrist Base 1st Digit 2.3 0.0 Left Ulnar Anti Sensory (5th Digit) Wrist ? 2.4 46.6 Wrist 5th Digit 2.4 14.0 58 Right Ulnar Anti Sensory (5th Digit) Wrist ? 2.2 49.9 Wrist 5th Digit 2.2 14.0 64 Motor Summary Table ?Stim Site NR Onset (ms) O-P Amp (mV) Site1 Site2 Delta-0 (ms) Dist (cm) Carmelo (m/s) Left Median Motor (Abd Poll Brev) Wrist ? 3.6 2.2 Elbow Wrist 5.2 29.0 56 Elbow ? 8.8 1.7 Right Median Motor (Abd Poll Brev) Wrist ? 3.0 2.7 Elbow Wrist 4.6 27.0 59 Elbow ? 7.6 2.3 Left Ulnar Motor (Abd Dig Minimi) Wrist ? 2.4 10.5 A Elbow Wrist 4.6 27.0 59 A Elbow ? 7.0 5.8 B Elbow Wrist 3.4 20.0 59 B Elbow ? 5.8 5.2 Right Ulnar Motor (Abd Dig Minimi) Wrist ? 2.9 5.5 A Elbow Wrist 4.6 28.0 61 A Elbow ? 7.5 4.2 B Elbow Wrist 3.4 20.0 59 B Elbow ? 6.3 4.3 F Wave Studies ?NR F-Lat (ms) L-R F-Lat (ms) Left Median (Mrkrs) (Abd Poll Brev) ? 29.39 0.94 Right Median (Mrkrs) (Abd Poll Brev) ? 28.46 0.94 Left Ulnar (Mrkrs) (Abd Dig Min) ? 27.01 0.77 Right Ulnar (Mrkrs) (Abd Dig Min) ? 27.78 0.77 EMG ?Side Muscle Nerve Root Ins Act Fibs Amp Dur Recrt Comment Right 1stDorInt Ulnar C8-T1 Nml Nml Nml Nml Nml Right Ext Indicis Radial (Post Int) C7-8 Nml Nml Nml Nml Nml Right Ext Digitorum Radial (Post Int) C7-8 Nml Nml Nml Nml Nml Right BrachioRad Radial C5-6 Nml Nml Nml Nml Nml Right PronatorTeres Median C6-7 Nml Nml Nml Nml Nml Right Abd Poll Brev Median C8-T1 Nml Nml Nml Nml Nml Right ABD Dig Min Ulnar C8-T1 Nml Nml Nml Nml Nml Right FlexPolLong Median (Ant Int) C7-8 Nml Nml Nml Nml Nml Right Abd Poll Long Radial (Post Int) C7-8 Nml Nml Nml Nml Nml Left 1stDorInt Ulnar C8-T1 Nml Nml Nml Nml Nml Left Ext Indicis Radial (Post Int) C7-8 Nml Nml Nml Nml Nml Left Ext Digitorum Radial (Post Int) C7-8 Nml Nml Nml Nml Nml Left BrachioRad Radial C5-6 Nml Nml Nml Nml Nml Left PronatorTeres Median C6-7 Nml Nml Nml Nml Nml Left Abd Poll Brev Median C8-T1 Nml Nml Nml Nml Nml Left ABD Dig Min Ulnar C8-T1 Nml Nml Nml Nml Nml Left FlexPolLong Median (Ant Int) C7-8 Nml Nml Nml Nml Nml Left Abd Poll Long Radial (Post Int) C7-8 Nml Nml Nml Nml Nml MTDD
== END 2024-07-18 13:21 | disposition home or self-care (01) ==
PROVIDERS: PCP Internal Medicine; Visit Provider Orthopaedic Surgery
DX: R20.0 Anesthesia of skin (principal); R20.2 Paresthesia of skin; G56.02 Carpal tunnel syndrome, left upper limb
CPT/HCPCS: 95886; 95911

== ENCOUNTER 2024-09-04 08:39 | Outpatient (CLI) | payer MEDICARE, SELFPAY ==
--- NOTE | 2024-09-04 08:46 | ECG_ITS ---
Test Date: 2024-09-04 08:56:52 Measurements Intervals [place] Rate: 80 P: 54 TX: 196 QRS: -16 QRSD: 97 T: 38 QT: 372 QTc: 429 Interpretive Statements SINUS RHYTHM BORDERLINE R WAVE PROGRESSION, ANTERIOR LEADS CONSIDER INFERIOR INFARCT, AGE INDETERMINATE BASELINE ARTIFACT- I, II, III, AVR, AVL, AVF ABNORMAL ECG No previous ECG available for comparison Electronically Signed On 09-04-2024 09:40:28 CDT by Jose Smith D.O.
[2024-09-04 09:14] LABS: Anion Gap 11 mmol/L (4-12); Blood Urea Nitrogen 16 mg/dL (7-17); Calcium 9.6 mg/dL (8.4-10.2); Carbon Dioxide 26 mmol/L (22-30); Chloride 103 mmol/L (98-107); Estimated Glomerular Filt Rate 45; Glucose 115 mg/dL (65-110); Potassium 4.2 mmol/L (3.4-5.0); Sodium 140 mmol/L (137-145)
[2024-09-04 09:24] LABS: Partial Thromboplastin Time 25.6 Seconds (22.3-36.8); Prothrombin Time 13.2 Seconds (11.1-14.7)
== END 2024-09-04 08:40 | disposition home or self-care (01) ==
LOC: ANHSURGERY 08:44
PROVIDERS: Anesthesiology; PCP Internal Medicine; Visit Provider Orthopaedic Surgery
DX: N18.30 Chronic kidney disease, stage 3 unspecified (principal); E78.5 Hyperlipidemia, unspecified; E11.40 Type 2 diabetes mellitus with diabetic neuropathy, unspecified; Z01.818 Encounter for other preprocedural examination
CPT/HCPCS: 36415; 80048; 85610; 85730; 93005

== ENCOUNTER 2024-09-06 01:00 | Day surgery (SDC) | payer MEDICARE, SELFPAY ==
[2024-08-28 11:09] VITALS: BMI 27.1
--- NOTE | 2024-08-28 11:23 | PC.NURSE ---
Addendum entered by Bess Rm RN 08/28/24 11:27: DATE of surgery is 09/06/24 Pt aware, Typo below JRRN Original Note: Report to the Outpatient Waiting Room, entrance under the green pavilion located off [facility], at time _09:30am on date . Planned Procedure Time: _11:30am .? Time changes happen often and if your time is changed the preop area will call you the afternoon before. - You and your visitor will be asked to self-screen and do not enter if you have any COVID symptoms. Please call surgeon if you need to reschedule. - A mask is optional within the hospital at this time. Patients may have clear liquids (water, carbonated beverages, clear teas, apple juice) until 3 hours prior to surgery with a maximum of 20 ounces. - No food from midnight until time of surgery and no smoking, or chewing tobacco (or any form of nicotine). No chewing gum, candy or mints. (0830am) Take only the following medications with a SIP of water on the morning of surgery: __None DO NOT STOP ANY OF YOUR OTHER PRESCRIPTION MEDICATIONS PRIOR TO SURGERY EXCEPT THE FOLLOWING Hold all vitamins and supplements for 3 days per anesthesiologist.Date of last dose is 09/03/24 Medications to discontinue per physician None Date to take last dose None Please no make-up, nail portuguese, hairspray, perfume, deodorant, or body powder the day of surgery.? No jewelry (including any body piercings) or valuables the day of surgery, leave them at home.? Please take a shower or bath the night before, or the morning of, surgery with an antibacterial soap.? Wear comfortable, loose fitting clothing.? - Jewelry must be removed prior to entering the operating room.? Rings and piercings that are not removed may be cut off. - The hospital will not accept responsibility for valuables.? - Please leave all valuables, including medications, at home the day of surgery. If you are going home after surgery, a licensed water taxi driver must drive you home.? - NO public transportation without another adult if you receive anesthesia. - We recommend that an adult stay with you for 24 hours following discharge. - We also recommend that you do not drive, make important decision, drink alcoholic beverages, or take any drugs that were not prescribed by your health care provider for at least 24 hours after your discharge time. Follow any additional instructions given to you from your surgeon. Telephone instructions given to _Patient and asked if any additional questions and then verbalized understanding. Patient advised to call surgeon office or pre surgery nurse liaison [phone] if any additional questions.
--- NOTE | 2024-09-04 15:48 | P.HP_ITS ---
H&P: HPI History of Present Illness Date/Time: 09/04/24 15:48 Chief Complaint: left hand numbness and tingling Narrative: 74-year-old woman with left carpal tunnel syndrome. Numbness and tingling in the hand thumb and index finger. Many years of symptoms. Managed conservatively. Now worsened desires operative treatment. EMG nerve conduction study shows median nerve compression at the wrist consistent with carpal tunnel syndrome. Review of Systems Constitutional: Constitutional: Reports no additional constitutional complaints, Denies body ache(s), Denies chills, Denies fatigue, Denies fever(s) and Denies headache(s) Eyes: Eyes: Reports no additional eye complaints and Denies blurry vision ENT: Reports system reviewed and no additional complaints, except as documented, Denies vertigo, Denies dizziness, Denies ear discharge, Denies otalgia, Denies facial pain, Denies headache(s), Reports lip swelling, Reports mouth pain, Denies nasal congestion, Denies nasal discharge, Reports nasal trauma, Denies sinus pain, Denies sinus pressure and Denies sore throat Cardiovascular: Cardiovascular: Reports no additional cardiovascular complaints, Denies chest pain, Denies chest pain at rest, Denies rapid heart rate and Denies dyspnea Respiratory: Respiratory: Reports no additional respiratory complaints, Denies chest congestion, Denies cough, Denies pain on inspiration, Denies pain with cough and Denies dyspnea Gastrointestinal: Gastrointestinal: Denies abdominal pain, Denies diarrhea, Denies nausea and Denies vomiting Integumentary/Breasts: Skin/Breast: Denies rash Neurologic: Reports system reviewed and no additional complaints, except as documented, Denies vertigo, Denies dizziness and Denies headache(s) Endocrine: Endocrine: Denies fatigue [facility] Past Medical History Medical History BMI 27.0-27.9,adult Left carpal tunnel syndrome Chronic kidney disease, stage 3 Insulin dependent type 2 diabetes mellitus Irritable bowel syndrome Degenerative joint disease Nephrolithiasis Gastro-esophageal reflux disease without esophagitis Arthritis Iron deficiency anemia Essential (primary) hypertension Neuropathy Hyperlipidemia Surgical History Surgical History History of hysterectomy History of section History of left cataract surgery History of breast biopsy Family History Family History Mother Heart disease Diabetes mellitus Father No problems noted. Other Asthma Hypertension Social History Social History Social History: Surrogate medical decision maker: Goyo Campbell, spouse. Code status: Full code. Smoking status: Never smoker Second hand tobacco smoke exposure: Yes Alcohol intake: current Alcohol use details: 1 every 6 mos Substance use: never Substance use type: painkillers Other substance usage details: Tramadol Do You Feel Safe in your Home?: Yes Lack of Transportation: No Lack of Food: Never True Current Housing: I Have Housing Concerned About Future Housing: No Difficulty Paying Gas/Electric Bills: No Difficulty Paying for Meds: No Currently Unemployed: No Education: High School Diploma/GED Difficulty w/ Childcare or Family Care: No Living arrangements: alone Additional living arrangements comments: Occupation/Education: 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 Gender identity (if verbalized by the patient): Female Spiritual care concerns: No Meds Home Medications and Allergies Home Medications ?Medication ?Instructions ?Recorded ?Confirmed ?Type blood-glucose meter (Accu-Chek #1 ea 02/07/19 08/28/24 History Cary Plus Meter) blood-glucose meter #1 ea 06/20/20 08/28/24 Rx lancets (Accu-Chek Fastclix Lancet #102 ea 06/11/22 08/28/24 Rx Drum) aspirin 81 mg tablet,delayed 81 mg PO QAM #28 tabs 10/01/22 08/28/24 Rx release cholecalciferol (vitamin D3) 25 25 mcg PO DAILY 05/12/23 08/28/24 History mcg (1,000 unit) capsule pen needle, diabetic 32 gauge x #400 ea 05/17/23 08/28/24 Rx (BD Ultra-Fine Kait Pen Needle) empagliflozin 25 mg tablet 25 mg PO DAILY 11/30/23 08/28/24 History (Jardiance) blood sugar diagnostic (Accu-Chek #100 strips 01/17/24 08/28/24 Rx Cary Plus test strips) gabapentin 100 mg capsule See Rx Instructions .Route 03/20/24 08/28/24 Rx .COMPLEX #200 caps lisinopril 20 mg tablet 20 mg PO DAILY #90 tabs 03/20/24 08/28/24 Rx omeprazole 20 mg capsule,delayed See Rx Instructions .Route 03/20/24 08/28/24 Rx release .COMPLEX #90 caps baclofen 20 mg tablet See Rx Instructions .Route 04/02/24 08/28/24 Rx .COMPLEX #90 tabs acyclovir 800 mg tablet 800 mg PO .5XD PRN herpes simplex 05/21/24 08/28/24 Rx #30 tabs Ozempic 2 mg/dose (8 mg/3 mL) 2 mg (0.75 mL) subcut WEEKLY #3 mL 05/31/24 08/28/24 Rx subcutaneous pen injector (semaglutide) tramadol 50 mg tablet 50 mg PO Q12H PRN pain #30 tabs 06/08/24 08/28/24 Rx famotidine 40 mg tablet 40 mg PO HS #90 tabs 06/25/24 08/28/24 Rx rosuvastatin 20 mg tablet 20 mg PO DAILY #90 tabs 06/25/24 08/28/24 Rx blood-glucose sensor (FreeStyle #6 ea 08/23/24 08/28/24 Rx Uche 3 Plus Sensor device) insulin degludec 200 unit/mL (3 20 unit subcut DAILY 08/28/24 08/28/24 History mL) subcutaneous pen (Tresiba FlexTouch U-200 insulin) oxybutynin chloride 10 mg 10 mg PO .day 08/28/24 08/28/24 History tablet,extended release 24 hr Allergies Allergy/AdvReac Type Severity Reaction Status Date / Time No Known Allergies Allergy Mild Verified 08/28/24 11:02 Exam Const: General: cooperative, healthy appearing, no acute distress, well developed and alert; No confusion Orientation/consciousness: No confusion HENMT: Head: normal to inspection, normocephalic and atraumatic Eyes: Conjunctivae: conjunctivae normal Sclera: sclerae normal Neck: Neck: supple and nontender Chest: Chest palpation & inspection: normal inspection of the chest Resp: Effort & Inspection: normal respiratory effort and no audible wheezes Cardio: Rate: regular rate Rhythm: regular rhythm : General: Yes deferred Skin: General skin exam: no rashes or lesions noted Neuro: General: No confusion Motor exam (neuro): Normal motor muscle tone present throughout Sensory Exam: Sensory deficit (Neuro) (decreased sensation to light touch thumb, index, middle and radial ring mata) and Upper extremity sensory exam abnormal Deep tendon reflexes (DTR's): Right triceps reflex intensity grade: 2+, Left triceps reflex intensity grade: 2+, Rt Biceps (C5, C6): 2+, Left biceps reflex intensity grade: 2+, Right brachioradialis reflex intensity grade: 2+ and Left brachioradialis reflex intensity grade: 2+ Extrem: General: capillary refill normal Right upper extremity: normal to inspection, full ROM, normal capillary refill and wrist normal vascular exam ( ), radial pulse present and normal Buddy's test; Tinel's positive ( positive median nerve compression test. Positive Tinel's) and Phalen's positive Left upper extremity: normal to inspection and wrist normal vascular exam, radial pulse present and normal Buddy's test; Tinel's positive ( positive median nerve compression test. Positive Tinel's) and Phalen's positive Right lower extremity: normal to inspection and hip/thigh Details: normal to inspection Left lower extremity: hip/thigh Details: tenderness, swelling and abnormal ROM and ankle (no calf tenderness) Psych: Affect: normal affect Assessment and Plan Assessment and plan (1) Left carpal tunnel syndrome: Code(s): G56.02 - Carpal tunnel syndrome, left upper limb Status: Acute Assessment and Plan: Discussed nonoperative and operative treatment options with the patient. Risks and benefits of each as well as alternatives were reviewed. All of the patient's questions were answered. The risks of surgery reviewed including but not limited to: Neurovascular damage, wound complication, infection, blood clot, pulmonary embolus, stroke, myocardial infarction, and anesthetic risks up to and including . Continued pain and possible dysfunction were explained. Specific risks of the procedure including later recurrence of deformity. No guarantees were offered. If hardware used, discussed risk of failure/ breakage and possible need for removal. If complications occur, the patient understands the need for further treatment, possible further surgery. Patient verbalizes understanding and wishes to proceed. PLAN: Left carpal tunnel release
--- NOTE | 2024-09-06 06:48 | WPDHPUPDATE1 ---
History and Physical Update Update Date/Time: 09/06/24 06:48 History and Physical has been reviewed, including an updated exam of the patient. There are NO changes in the patient's condition. Risks, benefits, and alternatives have been discussed and questions answered. Patient agrees to proceed with procedure.
[2024-09-06 09:30] VITALS: BP 122/76; PULSE 85; RESP 16; TEMP 36.9; O2SAT 97
--- NOTE | 2024-09-06 09:58 | WPDANESEPPF ---
Anes - Initial Pre Proc Eval Procedure: Operation Date: 09/06/24 11:30 Proposed Procedures p Left Carpal Tunnel Release - Willis Tam MD Date/Time: 09/06/24 09:58 Surgeon: Willis Tam MD Pre Op Diagnosis: Left Carpal Tunnel Syndrome Patient Data Age: 74 Gender: F Height: 1.52 m Weight: 63 kg Allergies Allergy/AdvReac Type Severity Reaction Status Date / Time No Known Allergies Allergy Mild Verified 08/28/24 11:02 Home Medications ?Medication ?Instructions ?Recorded ?Confirmed ?Type blood-glucose meter (Accu-Chek #1 ea 02/07/19 08/28/24 History Cary Plus Meter) blood-glucose meter #1 ea 06/20/20 08/28/24 Rx lancets (Accu-Chek Fastclix Lancet #102 ea 06/11/22 08/28/24 Rx Drum) aspirin 81 mg tablet,delayed 81 mg PO QAM #28 tabs 10/01/22 08/28/24 Rx release cholecalciferol (vitamin D3) 25 25 mcg PO DAILY 05/12/23 08/28/24 History mcg (1,000 unit) capsule pen needle, diabetic 32 gauge x #400 ea 05/17/23 08/28/24 Rx (BD Ultra-Fine Kait Pen Needle) empagliflozin 25 mg tablet 25 mg PO DAILY 11/30/23 08/28/24 History (Jardiance) blood sugar diagnostic (Accu-Chek #100 strips 01/17/24 08/28/24 Rx Cary Plus test strips) gabapentin 100 mg capsule See Rx Instructions .Route 03/20/24 08/28/24 Rx .COMPLEX #200 caps lisinopril 20 mg tablet 20 mg PO DAILY #90 tabs 03/20/24 08/28/24 Rx omeprazole 20 mg capsule,delayed See Rx Instructions .Route 03/20/24 08/28/24 Rx release .COMPLEX #90 caps baclofen 20 mg tablet See Rx Instructions .Route 04/02/24 08/28/24 Rx .COMPLEX #90 tabs acyclovir 800 mg tablet 800 mg PO .5XD PRN herpes simplex 05/21/24 08/28/24 Rx #30 tabs Ozempic 2 mg/dose (8 mg/3 mL) 2 mg (0.75 mL) subcut WEEKLY #3 mL 05/31/24 08/28/24 Rx subcutaneous pen injector (semaglutide) tramadol 50 mg tablet 50 mg PO Q12H PRN pain #30 tabs 06/08/24 08/28/24 Rx famotidine 40 mg tablet 40 mg PO HS #90 tabs 06/25/24 08/28/24 Rx rosuvastatin 20 mg tablet 20 mg PO DAILY #90 tabs 06/25/24 08/28/24 Rx blood-glucose sensor (FreeStyle #6 ea 08/23/24 08/28/24 Rx Uche 3 Plus Sensor device) insulin degludec 200 unit/mL (3 20 unit subcut DAILY 08/28/24 08/28/24 History mL) subcutaneous pen (Tresiba FlexTouch U-200 insulin) oxybutynin chloride 10 mg 10 mg PO .day 08/28/24 08/28/24 History tablet,extended release 24 hr Patient hx anesthesia problems: none Family hx anesthesia problems: none Results Review: All pre-operative results and documents have been reviewed as part of the pre-operative evaluation. [facility] Past Medical History Medical History (Updated 09/06/24 @ 08:09 by Aristides Hale DO) Transient ischemic attack BMI 27.0-27.9,adult Left carpal tunnel syndrome Chronic kidney disease, stage 3 Insulin dependent type 2 diabetes mellitus Irritable bowel syndrome Degenerative joint disease Nephrolithiasis Gastro-esophageal reflux disease without esophagitis Arthritis Iron deficiency anemia Essential (primary) hypertension Neuropathy Hyperlipidemia Surgical History Surgical History History of hysterectomy History of section History of left cataract surgery History of breast biopsy Family History Family History Mother Heart disease Diabetes mellitus Father No problems noted. Other Asthma Hypertension Social History Social History Social History: Surrogate medical decision maker: Goyo Eldern, spouse. Code status: Full code. Smoking status: Never smoker Second hand tobacco smoke exposure: Yes Alcohol intake: current Alcohol use details: 1 every 6 mos Substance use: never Substance use type: painkillers Other substance usage details: Tramadol Do You Feel Safe in your Home?: Yes Lack of Transportation: No Lack of Food: Never True Current Housing: I Have Housing Concerned About Future Housing: No Difficulty Paying Gas/Electric Bills: No Difficulty Paying for Meds: No Currently Unemployed: No Education: High School Diploma/GED Difficulty w/ Childcare or Family Care: No Living arrangements: alone Additional living arrangements comments: Occupation/Education: retired 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 Informed Consent: The patient's anesthetic plan and its attendant risks and benefits were discussed with the patient/family/POA. Questions were solicited and answers provided to the satisfaction of the patient/family/POA.
[2024-09-06] MEDS: ACETAMINOPHEN 500 MG TABLET 1000 MG PO (10:00)
[2024-09-06] MEDS: KETOROLAC 15 MG/ML VIAL (*BKC) IV PUSH (10:12)
[2024-09-06 10:13] LABS: Glucose Point of Care 109 mg/dl (65-105)
[2024-09-06 10:27] VITALS: BMI 26.6
--- NOTE | 2024-09-06 11:49 | SUR.PREOP ---
MD notified that patient takes 81mg aspirin daily. Last dose was taken last night. okay to proceed.
[2024-09-06] MEDS: ceFAZolin 2 GM/D5W 50 ML 2 GM/50 ML BAG IVPB (12:06)
[2024-09-06 12:44] VITALS: BP 99/50; PULSE 88; RESP 14; O2SAT 100
[2024-09-06] MEDS: LACTATED RINGERS 1,000 ML 30 ML IV CONT (12:44)
--- NOTE | 2024-09-06 12:57 | W.PM.PROC2 ---
Procedure Note - Detailed Date of Procedure 09/06/24 Pre-op Diagnosis Left Carpal Tunnel Syndrome Post-op Diagnosis Same Procedure Performed Left carpal tunnel release. Surgeon Willis Tam MD Records Section Supervisor assistant director of admissions Anesthesia MAC Indications The patient has history, exam findings, and electrodiagnostic findings consistent with carpal tunnel syndrome. Conservative treatment with bracing/ splinting, activity modifications, medication, ergonomics, injections has failed. Symptoms are daily and affect ability to use hand. The patient desires operative treatment. Description of Procedure After informed consent was given, the operative extremity was marked in the preoperative holding area. Intravenous antibiotics were given. The patient was taken to the operating room and underwent conscious sedation by the anesthesia team. A time-out was performed confirming patient, procedure, and operative site. Local infiltrate at the carpal tunnel was done with 0.5% marcaine. Prepping and draping was done using chloraprep skin solution with usual surgical sterile technique. Anatomic landmarks marked on skin. Hand was exsanguinated and arm tourniquet inflated to 225mmHg. Incision was made with #15 blade knife in skin crease on volar palm. Hemostasis was achieved with electrocautery. Careful dissection was carried down to the transverse carpal ligament. Retractors were placed. Ligament overlying median nerve was incised in line with skin incision using viejas blade. Proximal and distal release was done with metzenbaum scissors under direct visualization. Mosquito clamp was placed deep to ligament to protect nerve during release. The nerve was inspected and noted to be intact with mild flattening. Tendons had good excursion. The tourniquet was then released and pressure held. Bleeding points were coagulated with bipolar cautery. The wound was thoroughly irrigated with antibiotic solution. The skin was closed with 4-0 nylon interrupted suture. A sterile dressing was applied. Good capillary refill in the fingers and thumb was noted. The patient was transported to the recovery room in stable condition. All sponge, needle, instrument counts were correct at the end of the case. Estimated Blood Loss 2 Tourniquet Time Total Tourniquet Time: 5 Drains No Packing No Pathology None sent Complications None Condition Stable Disposition PACU [facility] Billing Surgery - Charge Forward: Surgery Billing ([id number])
[2024-09-06 13:06] LABS: Glucose Point of Care 98 mg/dl (65-105)
[2024-09-06 13:10] VITALS: BP 122/76; PULSE 77; RESP 20
[2024-09-06 13:30] VITALS: BP 110/72; PULSE 70; RESP 20
== END 2024-09-06 13:36 | disposition home or self-care (01) ==
PROVIDERS: PCP Internal Medicine; Visit Provider Orthopaedic Surgery
PROC: (CPT 64721; principal; 2024-09-06 11:30)
DX: G56.02 Carpal tunnel syndrome, left upper limb (principal); I12.9 Hypertensive chronic kidney disease with stage 1 through stage 4 chronic kidney disease, or unspecified chronic kidney disease; E11.22 Type 2 diabetes mellitus with diabetic chronic kidney disease; N18.30 Chronic kidney disease, stage 3 unspecified
CPT/HCPCS: 64721; 82948; A9270; J0690; J1885; J2003; J2250; J2704; J3010; J7120

== ENCOUNTER 2024-12-24 12:31 | Outpatient (CLI) | payer MEDICARE, SELFPAY ==
--- NOTE | ~2024-12-24 | XR_ITS ---
EXAMINATION: XR knee RT min 4V, 12/24/2024 12:33 CDT HISTORY: M17.11 - Unilateral primary osteoarthritis, right knee COMPARISON: No comparisons available. Findings: No acute fracture or malalignment. Severe tricompartmental degenerative changes, small effusion Soft tissues unremarkable. Impression: No acute fracture or malalignment. Reviewed, dictated and finalized at location P. Impression: No acute fracture or malalignment.
--- OUTSIDE RECORDS SUMMARY | 2024-12-24 13:28 | XMS_ITS | Clinical Summary ---
Author Organization [facility] [employer] Address [address] [place] [address] Care Team Providers Care Panel Machine Operator Name Role Phone Ender Nunez DO Primary Care Provider [phone] Source Comments [facility] [employer],non-owned Affiliates and Associated Physician Practices is amultiple site organization consisting of ambulatory clinics and hospital sitesin [place], [place], [place] and [place]. This disclosure is being madepursuant to the Care Everywhere program and may not contain all information available regarding this patient. Last updated 17.[employer] Allergies No known active allergies Medications * [...] 72.6 kg (160 lb) 04/10/2018 9:18 AM DEATH CLEARANCE COORDINATOR Height 152.4 cm (5') 04/10/2018 9:18 AM DEATH CLEARANCE COORDINATOR Body Mass Index 31.25 04/10/2018 9:18 AM DEATH CLEARANCE COORDINATOR Plan of Treatment Health Maintenance Due Date [...] 02/09/2016, 08/04/2015, 01/28/2015 SCREENING FOR DIABETES 04/10/2018 DEPRESSION SCREENING 03/14/2024 COVID-19 VACCINE (1 - 2023-2 5 season) 2024 INFLUENZA VACCINE (#1) 2024 Respiratory Syncytial Virus (RSV) Vaccine Pt: [...] patient's age to complete this topic Insurance [facility] MANAGED MEDICARE ADV Care Teams Panel Machine Operator Relationship Specialty Start Date End Date Ender Nunez DO [address] [place] [address] PCP - General Internal Medicine 04/10/18
--- OUTSIDE RECORDS SUMMARY | 2024-12-24 13:29 | XMS_ITS | Clinical Summary ---
Author Organization [facility] Address [address] [place] [id number] Care Team Providers Care Swim Instructor Name Role Phone Anna Tompkins MD Primary Care Provider [phone] Allergies No known active allergies Medications lisinopril-hydr [...] History Medical History Date Comments Diabetes mellitus Hypertension Neuropathy GERD (gastroesophageal reflux disease) Family [...] of 2) 2001 Well Visit 65+ 01/25/2016 Breast Cancer Screening-Mammogram 12/18/2023 023 Depression Screening 12/29/2023 12/28/2022 Fall Risk Assessment 12/29/2023 12/28/2022 Covid-19 Vaccine ( season) 2024 03/22/2021, 05/27/2020, 04/16/2020 Influenza Vaccine (#1) 2024 Osteoporosis Screening-Bone Density Scan 01/12/2025 01/12/2023 [...] F with given history of: Menopause screening Barrel Centerer/Model: Fiber Options SL (S/N [id number]) CLINICAL INFORMATION: Current height: 60 inches Maximum [...] Tato Lino M.D. MF: JORGE Report ID: [id number] Reading Location: [id number] Procedure Note Tato Lino MD - 01/12/2023 EXAM DESCRIPTION: DEXA AXIAL SKELETON BONE DENSITY 1 OR MORE SITES REASON FOR STUDY: 72 y/o year old F with given history of: Menopause screening Barrel Centerer/Model: Fiber Options SL (S/N [id number]) CLINICAL INFORMATION: Current height: 60 inches Maximum [...] Tato Lino M.D. MF: JORGE Report ID: [id number] Reading Location: [place] [address] Anna Tompkins MD IMG DXA PROCEDURES Final Res ult from Last 3 Months or Most Recently Relevant to Health Maintenance Insurance [employer] CLAIMS OFFICE [employer] MEDICARE ADVANTAGE [employer] MEDICARE GOLD Care Teams Swim Instructor Relationship Specialty Start Date End Date Anna Tompkins MD [address] [place] [address] PCP - General Family Medicine 12/28/22
--- OUTSIDE RECORDS SUMMARY | 2024-12-24 13:29 | XMS_ITS | Clinical Summary ---
Author Organization [facility] Address [address] [place] [address] Phone Care Team Providers Care Alternative Dispute Resolution Mediator Name Role Phone Sweta Denny MD Unavailable [phone] Ender Nunez DO Primary Care Provider [phone] Allergies No known active allergies Medications lisinopril-hydro [...] on file Legal Sex Female 1:21 PM [employer] Gender Identity Not on file Sexual Orientation Not on file Last Filed Vital Signs Vital Sign Reading Time Taken Comments Blood Pressure 144/87 04/25/2020 10:44 AM [employer] Pulse 86 04/25/2020 10:44 AM [employer] Temperature 36.2 C (97.2 F) 04/25/2020 10:44 AM [employer] Respiratory Rate 16 04/25/2020 10:44 AM [employer] Oxygen Saturation 98% 04/25/2020 10:44 AM [employer] Inhaled Oxygen Concentration - - Weight 69.9 kg (154 lb) 04/07/2020 11:00 AM [employer] Height 152.4 cm (5') 04/07/2020 11:00 AM [employer] Body Mass Index 30.08 04/07/2020 11:00 AM [employer] Plan of Treatment Health Maintenance Due Date Last Done Comments DEXA Bone Density 1950 Hepatitis C Virus (HCV) Screening 1950 TdaP Immunization 1950 Cologuard 01/25/1996 Immunochemical Fecal Occult Blood 01/25/1996 Pneumococcal Immunization (50+ years) (1 of 1 - PCV) 2001 Zoster Immunization (1 of 2) 2001 Medicare Initial AWV [id number] 03/14/2018 Mammogram 12/18/2023 12/17/2022, 07/13, 01/28/2015, Additional history exists Influenza Immunization (#1) 2024 SARS-COV-2 Immunization ( season) 2024 03/22/2021, 05/27/2020, 04/16/2020 Respiratory Syncytial Virus (RSV) Immunization (Adult) (1 - 1-dose 75+ series) 2026 Colonoscopy 04/25/2027 04/25/2020 Colorectal Cancer Screening 04/25/2027 Hepatitis B Immunization Aged Out No longer eligible based on patient's age to complete this topic Human Papillomavirus (HPV) Immunization Aged Out No longer eligible based [...] made to exams dated: 02/09/2016, 08/04/2015, 01/28/2015 [facility], and 12/24/2014 [facility]. BREAST TISSUE:The tissue of both breasts is [...] next screening exam. Electronically signed by: Deidre Snell M.D. ab/penrad:12/17/2022 11:06:44 Heavy Truck Mechanic(s): RT Brenden(R)(M), [facility] letter sent: Normal Exam Reading location: [facility] BI-RADS: 2 Benign Procedure Note Deidre Snell [...] made to exams dated: 02/09/2016, 08/04/2015, 01/28/2015 [facility], and 12/24/2014 [facility]. BREAST TISSUE:The tissue of both breasts is [...] exam. Electronically signed by: Deidre joel/trina:12/17/2022 11:06:44 Heavy Truck Mechanic(s): RT Brenden(R)(M), [facility] letter sent: Normal Exam Reading location: [facility] BI-RADS: 2 Benign Ender Nunez DO IMG MAMMO ORDERABLES Final Result from Last 3 Months or Most Recently Relevant to Health Maintenance Insurance MEDICARE C [employer] Care Teams Alternative Dispute Resolution Mediator Relationship Specialty Start Date End Date Ender Nunez DO [address] [place] [address] PCP - General Internal Medicine 01/04/18 Sweta Denny MD Consulting Physician General Surgery 02/10/15
== END 2024-12-24 12:32 | disposition home or self-care (01) ==
LOC: ANHBWCIMG 12:32
PROVIDERS: PCP Internal Medicine; Visit Provider Orthopaedic Surgery
DX: M25.461 Effusion, right knee (principal); M17.11 Unilateral primary osteoarthritis, right knee
CPT/HCPCS: 73564